=== PATIENT | female | born 1980 | race American Indian/Alaskan Native ===

== ENCOUNTER 2016-12-07 12:39 | Emergency (ER) | payer MEDICAID ==
--- NOTE | 2016-12-07 12:56 | EDM.PDOC ---
ED HPI ENT - General Chief Complaint: ENT Problem Stated Complaint: TOOTH PAIN Time Seen by Provider: 12/07/16 12:45 Source of Information: Reports: Patient History Limitations: Reports: No limitations - History of Present Illness INITIAL COMMENTS - FREE TEXT/NARRATIVE: This 36 yo female patient reports to the ED with right upper posterior dental pain. The patient has been seen for similar symptoms numerous times in the past. The patient has not followed up with a dentist and did not fill her prescription for antibiotics that was given to her during her last visit. The patient reports she has not been taking her regular medications for the past 2 months, because she reports it is difficult for her to get a ride to the pharmacy. 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 hip Endocrine/Metabolic History: Reports: Diabetes, type II - Past Surgical History Female Surgical History: Reports: Tubal ligation Social & Family History - Family History Family Medical History: Noncontributory - Tobacco Use Smoking Status *Q: Current Every Day Smoker Years of Tobacco use: 29 Packs/Tins Daily: 0.4 Second Hand Smoke Exposure: Yes - Alcohol Use Days Per Week of Alcohol Use: 0 - Recreational Drug Use Recreational Drug Use: No ED ROS ENT - Review of Systems Review Of Systems: ROS reveals no pertinent complaints other than HPI. ED EXAM, ENT - Physical Exam Exam: See Below Exam Limited By: No limitations General Appearance: alert, WD/WN, mild distress Eye Exam: bilateral eye: EOMI, normal inspection, PERRL Ears: normal external exam, normal canal, hearing grossly normal, normal TMs Nose: normal inspection, normal mucousa, no blood Mouth/Throat: Dental abcess (right upper posterior), Dental pain, Dental tenderness, Gum swelling Head: atraumatic, normocephalic Neck: normal inspection, supple, non-tender, full range of motion Respiratory/Chest: no respiratory distress, lungs clear, normal breath sounds, no accessory muscle use, chest non-tender Cardiovascular: normal peripheral pulses, regular rate, rhythm, no edema, no gallop, no JVD, no murmur, no rub GI/Abdominal: normal bowel sounds, soft, non tender, no organomegaly, no distention, no abnormal bruit, no mass (Female) Exam: Deferred Rectal (Female) Exam: Deferred Back: normal inspection, full range of motion Extremities: normal inspection, normal range of motion, non-tender, no pedal edema, normal capillary refill Neurological: alert, oriented, CN II-XII intact, normal cognition, normal gait, normal reflexes, no motor/sensory deficits Psychiatric: normal affect, normal mood Skin: Warm, Dry, Intact, Normal color, No rash Lymphatic: no adenopathy Course - Vital Signs Last Recorded V/S: Last Vital Signs Temp 36.4 C 12/07/16 12:49 Pulse 106 H 12/07/16 12:49 Resp 18 12/07/16 12:49 BP 154/68 H 12/07/16 12:49 Pulse Ox 98 12/07/16 12:49 Departure - Departure Time of Disposition: 12:53 Disposition: Home, Self-Care 01 Condition: fair Clinical Impression: Dental caries, Dental abscess Instructions: Dental Caries, [id number], Dental Abscess Forms: ED Department Discharge Care Plan Goals: The patient was advised of the examination results during the visit. The patient was given a script for Clindamycin (300 mg) #30 to take 1 by mouth 3 times per day for 10 days. The patient was advised to establish an appointment with a dentist. The patient was also advised that she needs to follow-up with her primary care facility for continued treatment of her other medical conditions. If the patient has any additional symptoms or further concerns, the patient should either visit her primary care facility or return to the emergency department.
== END 2016-12-07 13:07 | disposition home or self-care (01) ==
LOC: DL.ED 12:39
CPT/HCPCS: 99282

== ENCOUNTER 2017-06-06 19:05 | Emergency (ER) | payer MEDICAID, SELFPAY ==
[2017-06-06 19:13] VITALS: BP 124/88
[2017-06-06] MEDS ORDERED: Ondansetron 4 MG/2 ML SDV IV ONE (19:55)
[2017-06-06] MEDS ORDERED: HYDROmorphone 1 MG/ML Syringe IVPUSH ONE (19:55)
[2017-06-06] MEDS ORDERED: Sodium Chloride 0.9% 1,000 ML IV SCH (20:00)
--- NOTE | 2017-06-06 20:08 | EDM.PDOC ---
ED HPI GENERAL MEDICAL PROBLEM - General Chief Complaint: Abdominal Pain Stated Complaint: HEAVY BLEEDING Time Seen by Provider: 06/06/17 19:10 Source of Information: Reports: Patient, Other (clinic recor) History Limitations: Reports: No Limitations - History of Present Illness INITIAL COMMENTS - FREE TEXT/NARRATIVE: c/o right lower and mid abdominal pain starting 5 days ago. Recently seen in clinic today and reported to have torsed right ovarian cyst with retropertonial bleeding as well as vaginal bleeding. Dr. Garcia was reported to have spoken with Dr. Cowan at [facility] and patient was accepted for further evaluation and managment. Patient sent to ER as no immediate available ambulance for transfer, and clinic closing for the day. Patient rates RLQ pain at 8/10, describes as more pressure than previous after examination at clinic. hx. Denies drug or alcohol use. Last ate at 2pm today. Last took insulin approximately 2 weeks ago because "she ran out". Duration: Day(s): Location: Reports: Abdomen Worsens with: Reports: Movement Right Lower Abdomen Pain Score (Numeric/FACES): 7 - Related Data Allergies Allergy/AdvReac Type Severity Reaction Status Date / Time aspirin Allergy Rash Verified 12/07/16 12:49 Home Meds: Home Meds . 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 hip Endocrine/Metabolic History: Reports: Diabetes, Type II - Past Surgical History Female Surgical History: Reports: Tubal Ligation Social & Family History - Family History Family Medical History: Noncontributory - Tobacco Use Smoking Status *Q: Current Some Day Smoker Years of Tobacco use: 30 Packs/Tins Daily: 0.1 Second Hand Smoke Exposure: Yes - Alcohol Use Days Per Week of Alcohol Use: 0 - Recreational Drug Use Recreational Drug Use: No ED ROS GENERAL - Review of Systems Review Of Systems: ROS reveals no pertinent complaints other than HPI. ED EXAM, GI/ABD - Physical Exam Exam: See Below Exam Limited By: No Limitations General Appearance: Alert, Mild Distress, Thin Eyes: Bilateral: EOMI, Pale Conjunctiva Ears: Normal External Exam, Normal TMs Nose: Normal Inspection Throat/Mouth: Normal Inspection, Normal Lips Head: Atraumatic, Normocephalic Neck: Normal Inspection Respiratory/Chest: No Respiratory Distress, Lungs Clear, Normal Breath Sounds Cardiovascular: Normal Peripheral Pulses, Regular Rate, Rhythm, No Edema GI/Abdominal Exam: Soft, Guarding (RLQ), Tender (RLQ and suprapubic), Abnormal Bowel Sounds (hypoactive). No: Distended (Female) Exam: Deferred Extremities: Normal Inspection Neurological: Alert, Oriented Psychiatric: Normal Affect Skin Exam: Warm, Dry, Intact Course - Vital Signs Last Recorded V/S: Last Vital Signs Temp 97 F 06/06/17 19:08 Pulse 108 H 06/06/17 19:08 Resp 18 06/06/17 19:08 BP 124/88 06/06/17 19:08 Pulse Ox 100 06/06/17 19:08 - Orders/Labs/Meds Orders: Active Orders 24 hr Category Date Time Status Glucose [Blood Glucose Check, Bedside] [RC] ONETIME Care 06/06/17 20:01 Active Labs: Laboratory Tests 06/06/17 Range/Units 20:09 POC Glucose 275 H (70-105) mg/dl Meds: Medications Discontinued Medications Generic Name Dose Route Start Last Admin Trade Name Freq PRN Reason Stop Dose Admin Hydromorphone HCl 1 mg 06/06/17 19:55 06/06/17 20:04 Dilaudid IVPUSH 06/06/17 19:56 1 mg ONETIME ONE Administration Sodium Chloride 1,000 mls @ 125 mls/hr 06/06/17 20:00 06/06/17 20:04 Normal Saline IV 125 mls/hr ASDIRECTED JOHN Administration Ondansetron HCl 4 mg 06/06/17 19:55 06/06/17 20:02 Zofran IV 06/06/17 19:56 4 mg ONETIME ONE Administration - Re-Assessments/Exams Free Text/Narrative Re-Assessment/Exam: Tx via [facility] in stable condition to [facility] to care of Dr. Cowan for further eval and management. Contact with Dr. Cowan done by Clinic provider Dr. Garcia. Departure - Departure Time of Disposition: 20:40 Disposition: DC/Tfer to Acute Hospital 02 Condition: Undetermined Clinical Impression: Ovarian torsion, IDDM (insulin dependent diabetes mellitus), Noncompliance with medication regimen - Discharge Information Referrals: PCP,Unobtain [Primary Care Provider] - Forms: ED Department Discharge - My Orders Last 24 Hours: My Active Orders 06/06/17 20:01 Glucose [Blood Glucose Check, Bedside] [] ONETIME - Assessment/Plan Last 24 Hours: My Active Orders 06/06/17 20:01 Glucose [Blood Glucose Check, Bedside] [RC] ONETIME
== END 2017-06-06 20:43 ==
LOC: DL.ED 19:05
DX: N83.511 Torsion of right ovary and ovarian pedicle (principal); E11.9 Type 2 diabetes mellitus without complications; Z91.14 Patient's other noncompliance with medication regimen; M19.90 Unspecified osteoarthritis, unspecified site; F17.210 Nicotine dependence, cigarettes, uncomplicated; Z98.51 Tubal ligation status; Z88.6 Allergy status to analgesic agent
CPT/HCPCS: 82962; 96361; 96374; 96375; 99284; J1170; J2405; J7030

== ENCOUNTER 2017-10-04 20:26 | Inpatient (IN) | payer MEDICAID ==
[2017-10-04] MEDS ORDERED: Sodium Chloride 0.9% 1,000 ML IV ONE (20:51)
--- NOTE | 2017-10-04 20:57 | EDM.PDOC ---
ED HPI GENERAL MEDICAL PROBLEM - General Chief Complaint: General Stated Complaint: FLU SYMPTOMS, [id number] Time Seen by Provider: 10/04/17 20:53 Source of Information: Reports: Patient History Limitations: Reports: No Limitations - History of Present Illness INITIAL COMMENTS - FREE TEXT/NARRATIVE: c/o few days h/o F/C cough back ache shivering. 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 hip Endocrine/Metabolic History: Reports: Diabetes, Type II - Past Surgical History Female Surgical History: Reports: Tubal Ligation Social & Family History - Family History Family Medical History: Noncontributory - Tobacco Use Smoking Status *Q: Current Every Day Smoker Years of Tobacco use: 30 Packs/Tins Daily: 0.2 Second Hand Smoke Exposure: Yes - Caffeine Use Caffeine Use: Reports: Soda - Alcohol Use Days Per Week of Alcohol Use: 0 - Recreational Drug Use Recreational Drug Use: No ED ROS GENERAL - Review of Systems Review Of Systems: ROS reveals no pertinent complaints other than HPI. ED EXAM, GENERAL - Physical Exam Exam: See Below Exam Limited By: No Limitations General Appearance: Alert, WD/WN, Mild Distress, Other (general discomfort) Ears: Hearing Grossly Normal Throat/Mouth: Normal Voice, No Airway Compromise Head: Atraumatic Neck: Non-Tender, Full Range of Motion Respiratory/Chest: No Respiratory Distress, No Accessory Muscle Use, Rhonchi, Wheezing Cardiovascular: Regular Rate, Rhythm GI/Abdominal: Soft, Non-Tender Neurological: Alert, Oriented, Normal Cognition, Normal Gait, No Motor/Sensory Deficits Psychiatric: Flat Affect Skin Exam: Warm, Dry, Normal Color Lymphatic: No Adenopathy Course - Vital Signs Last Recorded V/S: Last Vital Signs Temp 38.8 C H 10/04/17 21:35 Pulse 117 H 01/16/18 21:35 Resp 14 10/04/17 21:35 BP 122/60 10/04/17 21:35 Pulse Ox 98 10/04/17 21:35 - Orders/Labs/Meds Orders: Active Orders 24 hr Category Date Time Status CULTURE BLOOD [BC] Stat Lab 10/04/17 20:50 Ordered Sodium Chloride 0.9% [Normal Saline] 1,000 ml Med 10/04/17 20:51 Ordered IV .BOLUS Medication Orders Sodium Chloride (Normal Saline) 1,000 mls @ 999 mls/hr IV .BOLUS ONE Stop: 10/04/17 21:51 Last Admin: 10/04/17 20:59 Dose: 999 mls/hr Labs: Laboratory Tests 10/04/17 10/04/17 10/04/17 Range/Units 20:49 20:49 20:58 WBC 8.0 (5.0-10.0) 10^3/uL RBC 4.94 (4.2-5.4) 10^6/uL Hgb 10.6 L (12.0-16.0) g/dL Hct 33.2 L (37.0-47.0) % MCV 67.2 L (80-100) fL MCH 21.5 L (27.0-34.0) pg MCHC 31.9 L (33.0-35.0) g/dL Plt Count 265 (150-450) 10^3/uL Neut % (Auto) 74.3 (42.2-75.2) % Lymph % (Auto) 15.2 L (20.5-50.1) % [place] % (Auto) 9.7 H (2-8) % Eos % (Auto) 0.6 L (1.0-3.0) % Baso % (Auto) 0.2 (0.0-1.0) % Sodium (135-145) mmol/L Potassium (3.6-5.0) mmol/L Chloride (101-111) mmol/L Carbon Dioxide (21.0-31.0) mmol/L Anion Gap BUN (7-18) mg/dL Creatinine (0.6-1.3) mg/dL Est Cr Clr Drug Dosing mL/min Estimated GFR (MDRD) BUN/Creatinine Ratio Glucose (74-105) mg/dL Lactic Acid (0.5-2.2) mmol/L Calcium (8.4-10.2) mg/dl Total Bilirubin (0.2-1.0) mg/dL AST (10-42) IU/L ALT (10-60) IU/L Alkaline Phosphatase (42-121) IU/L Total Protein (6.7-8.2) g/dl Albumin (3.2-5.5) g/dl Globulin Albumin/Globulin Ratio Urine Color Light yellow (YELLOW) Urine Appearance Cloudy (CLEAR) Urine pH 7.0 (5.0-9.0) Ur Specific [place] 1.010 (1.005-1.030) Urine Protein 30 H (NEGATIVE) Urine Glucose (UA) >=1000 H (NEGATIVE) Urine Ketones Negative (NEGATIVE) Urine Occult Blood Moderate H (NEGATIVE) Urine Nitrite Negative (NEGATIVE) Urine Bilirubin Negative (NEGATIVE) Urine Urobilinogen 0.2 (0.2-1.0) mg/dL Ur Leukocyte Esterase Trace H (NEGATIVE) Urine RBC 40-50 H /HPF Urine WBC Semi-packed H (0-5/HPF) /HPF Ur Epithelial Cells Few /HPF Amorphous Sediment Rare (0/HPF) /HPF Urine Bacteria Few (0-FEW/HPF) /HPF Urine Mucus Rare /LPF Urine Opiates Screen Negative (NEGATIVE) Ur Oxycodone Screen Negative (NEGATIVE) Urine Methadone Screen Negative (NEGATIVE) Ur Barbiturates Screen Negative (NEGATIVE) U Tricyclic Antidepress Negative (NEGATIVE) Ur Phencyclidine Scrn Negative (NEGATIVE) Ur Amphetamine Screen Negative (NEGATIVE) U Methamphetamines Scrn Negative (NEGATIVE) Urine MDMA Screen Negative (NEGATIVE) U Benzodiazepines Scrn Negative (NEGATIVE) Urine Cocaine Screen Negative (NEGATIVE) U Marijuana (THC) Screen Positive H (NEGATIVE) 10/04/17 10/04/17 Range/Units 20:58 20:58 WBC (5.0-10.0) 10^3/uL RBC (4.2-5.4) 10^6/uL Hgb (12.0-16.0) g/dL Hct (37.0-47.0) % MCV (80-100) fL MCH (27.0-34.0) pg MCHC (33.0-35.0) g/dL Plt Count (150-450) 10^3/uL Neut % (Auto) (42.2-75.2) % Lymph % (Auto) (20.5-50.1) % [place] % (Auto) (2-8) % Eos % (Auto) (1.0-3.0) % Baso % (Auto) (0.0-1.0) % Sodium 129 L (135-145) mmol/L Potassium 2.9 L D (3.6-5.0) mmol/L Chloride 92 L (101-111) mmol/L Carbon Dioxide 26.0 (21.0-31.0) mmol/L Anion Gap 13.9 BUN 5 L (7-18) mg/dL Creatinine 0.6 (0.6-1.3) mg/dL Est Cr Clr Drug Dosing 92.21 mL/min Estimated GFR (MDRD) > 60 BUN/Creatinine Ratio 8.33 Glucose 338 H (74-105) mg/dL Lactic Acid 1.1 (0.5-2.2) mmol/L Calcium 9.2 (8.4-10.2) mg/dl Total Bilirubin 0.2 (0.2-1.0) mg/dL AST 17 (10-42) IU/L ALT 13 (10-60) IU/L Alkaline Phosphatase 132 H (42-121) IU/L Total Protein 7.7 (6.7-8.2) g/dl Albumin 3.4 (3.2-5.5) g/dl Globulin 4.3 Albumin/Globulin Ratio 0.79 Urine Color (YELLOW) Urine Appearance (CLEAR) Urine pH (5.0-9.0) Ur Specific [place] (1.005-1.030) Urine Protein (NEGATIVE) Urine Glucose (UA) (NEGATIVE) Urine Ketones (NEGATIVE) Urine Occult Blood (NEGATIVE) Urine Nitrite (NEGATIVE) Urine Bilirubin (NEGATIVE) Urine Urobilinogen (0.2-1.0) mg/dL Ur Leukocyte Esterase (NEGATIVE) Urine RBC /HPF Urine WBC (0-5/HPF) /HPF Ur Epithelial Cells /HPF Amorphous Sediment (0/HPF) /HPF Urine Bacteria (0-FEW/HPF) /HPF Urine Mucus /LPF Urine Opiates Screen (NEGATIVE) Ur Oxycodone Screen (NEGATIVE) Urine Methadone Screen (NEGATIVE) Ur Barbiturates Screen (NEGATIVE) U Tricyclic Antidepress (NEGATIVE) Ur Phencyclidine Scrn (NEGATIVE) Ur Amphetamine Screen (NEGATIVE) U Methamphetamines Scrn (NEGATIVE) Urine MDMA Screen (NEGATIVE) U Benzodiazepines Scrn (NEGATIVE) Urine Cocaine Screen (NEGATIVE) U Marijuana (THC) Screen (NEGATIVE) Meds: Medications Generic Name Dose Route Start Last Admin Trade Name Linoq PRN Reason Stop Dose Admin Sodium Chloride 1,000 mls @ 999 mls/hr 10/04/17 20:51 10/04/17 20:59 Normal Saline IV 10/04/17 21:51 999 mls/hr .BOLUS ONE Administration Discontinued Medications Generic Name Dose Route Start Last Admin Trade Name Freq PRN Reason Stop Dose Admin Acetaminophen 325 mg 10/04/17 21:32 10/04/17 21:39 Tylenol PO 10/04/17 21:33 325 mg NOW ONE Administration - Re-Assessments/Exams Free Text/Narrative Re-Assessment/Exam: 10/04/17 21:[address] Groves who kindly admitted pt. Departure - Departure Time of Disposition: 21:40 Disposition: Admitted As Inpatient 66 Condition: Good Clinical Impression: Influenza A, UTI, Urinary tract infectious disease, Hyponatremia syndrome, Hypokalemia - Discharge Information Forms: ED Department Discharge - My Orders Last 24 Hours: My Active Orders 10/04/17 20:50 CULTURE BLOOD [BC] Stat 10/04/17 20:51 Sodium Chloride 0.9% [Normal Saline] 1,000 ml IV .BOLUS - Assessment/Plan Last 24 Hours: My Active Orders 10/04/17 20:50 CULTURE BLOOD [BC] Stat 10/04/17 20:51 Sodium Chloride 0.9% [Normal Saline] 1,000 ml IV .BOLUS
[2017-10-04 21:25] LABS: CHLORIDE,CL 92 mmol/L (101-111); SODIUM,NA 129 mmol/L (135-145)
[2017-10-04] MEDS ORDERED: Acetaminophen 325 MG Tab PO ONE (21:32)
[2017-10-04] MEDS ORDERED: Ondansetron 4 MG/2 ML SDV IVPUSH PRN (22:23)
[2017-10-04] MEDS ORDERED: Sodium Chloride 0.9% 10 ML Syringe FLUSH PRN (22:23)
--- NOTE | 2017-10-04 22:32 | PCM.HP ---
H&P History of Present Illness - General Date of Service: 10/04/17 Admit Problem/Dx: Admission Diagnosis/Problem Admission Diagnosis/Problem Hypokalemia Source of Information: Patient - History of Present Illness Initial Comments - Free Text/Narative: Presented with about 4 days history of fever, chills associated. Nonproductive cough. No similar sick contact. No appetite, low oral intake. She has diabetes. Not checking blood sugars at home. Had headaches. No abdominal pain. Has nausea and vomiting today. No diarrhea. 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 hip Endocrine/Metabolic History: Reports: Diabetes, Type I - Past Surgical History Female Surgical History: Reports: Tubal Ligation Social & Family History - Family History Family Medical History: Noncontributory - Tobacco Use Smoking Status *Q: Current Every Day Smoker Years of Tobacco use: 30 Packs/Tins Daily: 0.2 Second Hand Smoke Exposure: Yes - Caffeine Use Caffeine Use: Reports: Soda - Alcohol Use Days Per Week of Alcohol Use: 0 - Recreational Drug Use Recreational Drug Use: No H&P Review of Systems - Review of Systems: Review Of Systems: See Below General: Reports: Fever, Chills HEENT: Reports: Headaches Pulmonary: Reports: Cough. Denies: Shortness of Breath, Sputum, Hemoptysis Cardiovascular: Denies: Chest Pain, Edema Gastrointestinal: Reports: Nausea. Denies: Abdominal Pain Genitourinary: Denies: Dysuria Exam - Exam Exam: See Below - Vital Signs Vital Signs: Last Vital Signs Temp 38.1 C 10/04/17 22:10 Pulse 121 H 10/04/17 22:10 Resp 16 10/04/17 22:10 BP 125/68 10/04/17 22:10 Pulse Ox 99 10/04/17 22:10 Weight: 53.099 kg - Exam General: Alert, Oriented Neck: Supple, Trachea Midline Lungs: Clear to Auscultation, Normal Respiratory Effort. No: Wheezing Cardiovascular: Regular Rate, Regular Rhythm GI/Abdominal Exam: Normal Bowel Sounds, Soft, Non-Tender Extremities: No Pedal Edema Neuro Extensive - Mental Status: Alert, Oriented x3 - Patient Data Result Diagrams: 10/04/17 20:58 10/04/17 20:58 *Q Meaningful Use (ADM) - VTE *Q VTE Criteria *Q: - Stroke *Q Stroke Criteria *Q: - AMI *Q AMI Criteria *Q: - Problem List (1) Hypokalemia SNOMED Code(s): 02357836 ICD Code: E87.6 - HYPOKALEMIA Status: Acute Current Visit: Yes (2) UTI, Urinary tract infectious disease SNOMED Code(s): 91541476 ICD Code: N39.0 - URINARY TRACT INFECTION, SITE NOT SPECIFIED Status: Acute Current Visit: Yes (3) IDDM (insulin dependent diabetes mellitus) SNOMED Code(s): 63081097 ICD Code: E11.9 - TYPE 2 DIABETES MELLITUS WITHOUT COMPLICATIONS; Z79.4 - MCFP (CURRENT) USE OF INSULIN Status: Acute Current Visit: No Problem List Initiated/Reviewed/Updated: Yes Orders Last 24hrs: Active Orders 24 hr Category Date Time Status Patient Status [ADT] Routine ADT 10/04/17 22:23 Ordered Glucose [Blood Glucose Check, Bedside] [RC] QIDACANDBED Care 10/04/17 22:17 Ordered Oxygen Therapy [RC] PRN Care 10/04/17 22:23 Ordered Peripheral IV Care [RC] . DIRECTED Care 10/04/17 22:26 Ordered Up With Assistance [RC] ASDIRECTED Care 10/04/17 22:23 Ordered VTE/DVT Education [RC] PER UNIT ROUTINE Care 10/04/17 22:23 Ordered Vital Signs [RC] Q4H Care 10/04/17 22:23 Ordered Consistent Carbohydrate Diet [DIET] Diet 10/04/17 Breakfast Ordered BASIC METABOLIC PANEL,BMP [CHEM] AM Lab 10/05/17 05:15 Ordered CBC WITH AUTO DIFF [HEME] AM Lab 10/05/17 05:15 Ordered CULTURE URINE [RM] Routine Lab 10/04/17 22:20 Uncollected MAGNESIUM [CHEM] AM Lab 10/05/17 05:11 Ordered PHOSPHORUS [CHEM] AM Lab 10/05/17 05:11 Ordered Acetaminophen [Tylenol] Med 10/04/17 22:23 Ordered 650 mg PO Q4H PRN Heparin Sodium Med 10/05/17 06:00 Ordered 5,000 units SUBCUT Q8HR Insulin Aspart [NovoLOG] Med 10/05/17 08:00 Ordered See Protocol SUBCUT TIDAC Insulin Glarg,Human.Rec.Analog Med 10/05/17 21:00 Ordered 26 units SUBCUT BEDTIME Ondansetron [Zofran] Med 10/04/17 22:23 Ordered 4 mg IVPUSH Q6H PRN Oseltamivir [Tamiflu] Med 10/04/17 22:30 Ordered 75 mg PO DAILY Potassium Chloride [KCl 10 MEQ in Water 100 ML] 10 meq Med 10/04/17 22:30 Ordered Premix Bag 1 bag IV .Q2H Sodium Chloride 0.9% [Saline Flush] Med 10/04/17 22:23 Ordered 10 ml FLUSH ASDIRECTED PRN Sodium Chloride 0.9% with KCl 20 mEq @ 100 mL/Hr (1000 Med 10/04/17 22:30 Ordered mL) NS + KCl 20mEq/L [Normal Saline with 20 mEq KCl] 1,000 ml IV ASDIRECTED Zolpidem [Ambien] Med 10/04/17 22:23 Ordered 5 mg PO BEDTIME PRN cefTRIAXone [Rocephin] Med 10/04/17 22:30 Ordered 1 gm IVPUSH Q24H Peripheral IV Insertion Adult [OM.PC] Routine Oth 10/04/17 22:23 Ordered Resuscitation Status Routine Resus Stat 10/04/17 22:23 Ordered Medication Orders Acetaminophen (Tylenol) 650 mg PO Q4H PRN PRN Reason: Pain (Mild 1-3)/fever Ceftriaxone Sodium (Rocephin) 1 gm IVPUSH Q24H JOHN Heparin Sodium (Porcine) (Heparin Sodium) 5,000 units SUBCUT Q8HR JOHN Potassium Chloride 10 meq/ (Premix) 100 mls @ 100 mls/hr IV .Q2H JOHN Potassium Chloride/Sodium Chloride (Normal Saline With 20 Meq Kcl) 1,000 mls @ 100 mls/hr IV ASDIRECTED JOHN Insulin Aspart (Novolog) 0 unit SUBCUT TIDAC JOHN PRN Reason: Protocol Non-Formulary Medication (Insulin Glarg,Human.Rec.Analog) 26 units SUBCUT BEDTIME JOHN Ondansetron HCl (Zofran) 4 mg IVPUSH Q6H PRN PRN Reason: Nausea/Vomiting Oseltamivir Phosphate (Tamiflu) 75 mg PO DAILY JOHN Sodium Chloride (Saline Flush) 10 ml FLUSH ASDIRECTED PRN PRN Reason: Keep Vein Open Zolpidem Tartrate (Ambien) 5 mg PO BEDTIME PRN PRN Reason: Sleep Assessment/Plan Comment:: 37-year-old lady with a history of diabetes presented with fever, cough, chills. #1 upper respiratory tract infection likely secondary to influenza Start the patient on Tamiflu Obtain sputum culture to evaluate for bacterial superinfection IV hydration, Tylenol and symptomatic management #2 urinary tract infection Obtain urine culture Start treatment empirically with ceftriaxone #3 Uncontrolled diabetes We'll continue Lantus at night Use supplemental insulin as needed Follow blood sugars before meals #4 pseudohyponatremia Secondary to elevated blood sugars Follow electrolytes during treatment of hyperglycemia #5 hypokalemia We'll give IV supplement Recheck magnesium phosphorous potassium and the morning #6 DVT prophylaxis with subcutaneous heparin
[2017-10-04] MEDS: cefTRIAXone 1 GM Vial IVPUSH SCH (22:44)
[2017-10-04] MEDS: Oseltamivir 75 MG Cap PO SCH (22:45)
[2017-10-04] MEDS: Insulin Detemir 100 Units/ML 3 ML Pen SUBCUT SCH (22:54)
[2017-10-04] MEDS: guaiFENesin 100 MG/5 ML Soln 5 ML UD Cup PO PRN (22:55)
[2017-10-04] MEDS: NS + KCl 20mEq/L 1,000 ML IV SCH (22:59)
[2017-10-04] MEDS: Potassium Chloride 10 MEQ in Premix Bag 1 BAG IV SCH (23:02)
[2017-10-04] MEDS: Zolpidem 5 MG Tab PO PRN (23:05)
[2017-10-05] MEDS: Potassium Chloride 10 MEQ in Premix Bag 1 BAG IV SCH ×6 (00:05→10:00)
[2017-10-05] MEDS: guaiFENesin 100 MG/5 ML Soln 5 ML UD Cup PO PRN ×3 (05:30→21:01)
[2017-10-05] MEDS: Heparin Sodium 5,000 Units/ML Vial SUBCUT SCH ×3 (05:37→22:23)
[2017-10-05 07:07] LABS: CHLORIDE,CL 105 mmol/L (101-111); SODIUM,NA 135 mmol/L (135-145)
[2017-10-05] MEDS: Oseltamivir 75 MG Cap PO SCH (08:10)
[2017-10-05] MEDS: Acetaminophen 325 MG Tab PO PRN ×2 (08:10→19:52)
[2017-10-05] MEDS: Insulin Aspart 100 Units/ML 3 ML Pen SUBCUT SCH ×3 (08:11→17:36)
[2017-10-05] MEDS: NS + KCl 20mEq/L 1,000 ML IV SCH ×2 (10:59→21:00)
[2017-10-05] MEDS ORDERED: Potassium Chloride 10 MEQ Tab.ER PO ONE (11:24)
--- NOTE | 2017-10-05 11:30 | PCM.PN ---
- General Info Date of Service: 10/05/17 Admission Dx/Problem (Free Text): Admission Diagnosis/Problem Admission Diagnosis/Problem Hypokalemia Subjective Update: Continues to have fever, nonproductive cough. No chest pain, no shortness of breath. Patient's significant other is also with similar symptoms. - Patient Data Vitals - Most Recent: Last Vital Signs Temp 36.2 C 10/05/17 11:00 Pulse 92 10/05/17 11:00 Resp 20 10/05/17 11:00 BP 103/61 10/05/17 11:00 Pulse Ox 99 10/05/17 11:00 Weight - Most Recent: 53.099 kg I&O - Last 24 Hours: Intake & Output 10/04/17 10/05/17 10/05/17 22:59 06:59 14:59 Intake Total 900 1077 Output Total 850 400 Balance 50 677 Lab Results Last 24 Hours: Laboratory Results - last 24 hr 10/04/17 10/05/17 10/05/17 Range/Units 23:35 06:30 06:30 WBC 5.6 (5.0-10.0) 10^3/uL RBC 4.39 (4.2-5.4) 10^6/uL Hgb 9.5 L (12.0-16.0) g/dL Hct 29.6 L (37.0-47.0) % MCV 67.4 L (80-100) fL MCH 21.6 L (27.0-34.0) pg MCHC 32.1 L (33.0-35.0) g/dL Plt Count 272 (150-450) 10^3/uL Neut % (Auto) 48.0 (42.2-75.2) % Lymph % (Auto) 35.8 (20.5-50.1) % [place] % (Auto) 15.1 H (2-8) % Eos % (Auto) 0.7 L (1.0-3.0) % Baso % (Auto) 0.4 (0.0-1.0) % Sodium 135 (135-145) mmol/L Potassium 3.4 L (3.6-5.0) mmol/L Chloride 105 D (101-111) mmol/L Carbon Dioxide 23.0 (21.0-31.0) mmol/L Anion Gap 10.4 BUN 5 L (7-18) mg/dL Creatinine 0.4 L (0.6-1.3) mg/dL Est Cr Clr Drug Dosing 138.32 mL/min Estimated GFR (MDRD) > 60 Glucose 136 H (74-105) mg/dL POC Glucose (70-105) mg/dl Calcium 8.0 L (8.4-10.2) mg/dl Phosphorus 2.5 (2.5-4.6) mg/dL Magnesium 1.5 L (1.8-2.5) mg/dL Urine HCG, Qual Negative 10/05/17 Range/Units 07:55 WBC (5.0-10.0) 10^3/uL RBC (4.2-5.4) 10^6/uL Hgb (12.0-16.0) g/dL Hct (37.0-47.0) % MCV (80-100) fL MCH (27.0-34.0) pg MCHC (33.0-35.0) g/dL Plt Count (150-450) 10^3/uL Neut % (Auto) (42.2-75.2) % Lymph % (Auto) (20.5-50.1) % [place] % (Auto) (2-8) % Eos % (Auto) (1.0-3.0) % Baso % (Auto) (0.0-1.0) % Sodium (135-145) mmol/L Potassium (3.6-5.0) mmol/L Chloride (101-111) mmol/L Carbon Dioxide (21.0-31.0) mmol/L Anion Gap BUN (7-18) mg/dL Creatinine (0.6-1.3) mg/dL Est Cr Clr Drug Dosing mL/min Estimated GFR (MDRD) Glucose (74-105) mg/dL POC Glucose 100 (70-105) mg/dl Calcium (8.4-10.2) mg/dl Phosphorus (2.5-4.6) mg/dL Magnesium (1.8-2.5) mg/dL Urine HCG, Qual Med Orders - Current: Current Medications Acetaminophen (Tylenol) 650 mg PO Q4H PRN PRN Reason: Pain (Mild 1-3)/fever Last Admin: 10/05/17 08:10 Dose: 650 mg Ceftriaxone Sodium (Rocephin) 1 gm IVPUSH Q24H [facility] Last Admin: 10/04/17 22:44 Dose: 1 gm Guaifenesin (Robitussin) 100 mg PO Q6H PRN PRN Reason: Cough Last Admin: 10/05/17 05:30 Dose: 100 mg Heparin Sodium (Porcine) (Heparin Sodium) 5,000 units SUBCUT Q8HR [facility] Last Admin: 10/05/17 05:37 Dose: 5,000 units Potassium Chloride/Sodium Chloride (Normal Saline With 20 Meq Kcl) 1,000 mls @ 100 mls/hr IV ASDIRECTED [facility] Last Admin: 10/05/17 10:59 Dose: 100 mls/hr Insulin Aspart (Novolog) 0 unit SUBCUT TIDAC [facility] PRN Reason: Protocol Last Admin: 10/05/17 08:11 Dose: Not Given Insulin Detemir (Levemir) 0 unit SUBCUT BEDTIME [facility] Last Admin: 10/04/17 22:54 Dose: 26 units Magnesium Oxide (Magnesium Oxide) 250 mg PO WITHBREAKFAST [facility] Ondansetron HCl (Zofran) 4 mg IVPUSH Q6H PRN PRN Reason: Nausea/Vomiting Oseltamivir Phosphate (Tamiflu) 75 mg PO DAILY [facility] Last Admin: 10/05/17 08:10 Dose: 75 mg Potassium Chloride (Klor-Con 10) 40 meq PO ONETIME ONE Stop: 10/05/17 11:25 Sodium Chloride (Saline Flush) 10 ml FLUSH ASDIRECTED PRN PRN Reason: Keep Vein Open Zolpidem Tartrate (Ambien) 5 mg PO BEDTIME PRN PRN Reason: Sleep Last Admin: 10/04/17 23:05 Dose: 5 mg Discontinued Medications Acetaminophen (Tylenol) 325 mg PO NOW ONE Stop: 10/04/17 21:33 Last Admin: 10/04/17 21:39 Dose: 325 mg Sodium Chloride (Normal Saline) 1,000 mls @ 999 mls/hr IV .BOLUS ONE Stop: 10/04/17 21:51 Last Admin: 10/04/17 20:59 Dose: 999 mls/hr Potassium Chloride 10 meq/ (Premix) 100 mls @ 100 mls/hr IV Q2H [facility] Stop: 10/05/17 09:29 Last Admin: 10/05/17 10:00 Dose: Not Given - Exam General: Alert, Oriented Neck: Supple Lungs: Clear to Auscultation, Normal Respiratory Effort Cardiovascular: Regular Rate, Regular Rhythm GI/Abdominal Exam: Normal Bowel Sounds, Soft, Non-Tender Extremities: No Pedal Edema - Problem List & Annotations (1) Hypokalemia SNOMED Code(s): 80666722 Code(s): E87.6 - HYPOKALEMIA Status: Acute Current Visit: Yes (2) UTI, Urinary tract infectious disease SNOMED Code(s): 06783266 Code(s): N39.0 - URINARY TRACT INFECTION, SITE NOT SPECIFIED Status: Acute Current Visit: Yes (3) IDDM (insulin dependent diabetes mellitus) SNOMED Code(s): 78315444 Code(s): E11.9 - TYPE 2 DIABETES MELLITUS WITHOUT COMPLICATIONS; Z79.4 - RETIREMENT (CURRENT) USE OF INSULIN Status: Acute Current Visit: No - Problem List Review Problem List Initiated/Reviewed/Updated: Yes - My Orders Last 24 Hours: My Active Orders 10/04/17 22:33 guaiFENesin [Robitussin] 100 mg PO Q6H PRN 10/05/17 11:24 Potassium Chloride [Klor-Con 10] 40 meq PO ONETIME ONE 10/05/17 11:30 Magnesium Oxide 250 mg PO WITHBREAKFAST - Plan Plan:: 37-year-old lady with a history of diabetes presented with fever, cough, chills. #1 upper respiratory tract infection likely secondary to influenza Started the patient on Tamiflu pending sputum culture to evaluate for bacterial superinfection Continue IV hydration, Tylenol and symptomatic management #2 urinary tract infection Pending urine culture Start treatment empirically with ceftriaxone #3 Uncontrolled diabetes We'll continue Lantus Use supplemental insulin as needed Follow blood sugars before meals #4 pseudohyponatremia Secondary to elevated blood sugars Resolved #5 hypokalemia We'll continue supplement replace magnesium recheck in the morning #6 DVT prophylaxis with subcutaneous heparin
[2017-10-05] MEDS: Insulin Detemir 100 Units/ML 3 ML Pen SUBCUT SCH (22:21)
[2017-10-05] MEDS: Zolpidem 5 MG Tab PO PRN (22:22)
[2017-10-05] MEDS: cefTRIAXone 1 GM Vial IVPUSH SCH (23:06)
[2017-10-06] MEDS: guaiFENesin 100 MG/5 ML Soln 5 ML UD Cup PO PRN ×2 (03:03→09:57)
[2017-10-06] MEDS: Acetaminophen 325 MG Tab PO PRN ×2 (03:03→09:57)
[2017-10-06] MEDS: NS + KCl 20mEq/L 1,000 ML IV SCH (06:45)
[2017-10-06] MEDS: Heparin Sodium 5,000 Units/ML Vial SUBCUT SCH ×2 (06:47→15:31)
[2017-10-06 06:58] LABS: CHLORIDE,CL 103 mmol/L (101-111); SODIUM,NA 135 mmol/L (135-145)
[2017-10-06] MEDS: Oseltamivir 75 MG Cap PO SCH (08:54)
[2017-10-06] MEDS: Insulin Aspart 100 Units/ML 3 ML Pen SUBCUT SCH ×2 (08:54→12:33)
[2017-10-06 11:08] VITALS: BP 109/75
--- NOTE | 2017-10-06 11:08 | PCM.DCSUM1 ---
Discharge Summary - Hospital Course Free Text/Narrative:: 37-year-old lady with a history of diabetes presented with fever, cough, chills. #1 upper respiratory tract infection likely secondary to influenza Started the patient on Tamiflu received IV hydration, Tylenol and symptomatic management #2 urinary tract infection Pending urine culture Start treatment empirically with ceftriaxone finish tx. with keflex #3 Uncontrolled diabetes We'll continue Lantus #4 pseudohyponatremia Secondary to elevated blood sugars Resolved #5 hypokalemia was replaced - Discharge Data Discharge Date: 10/06/17 Discharge Disposition: Home, Self-Care 01 Condition: Good - Discharge Diagnosis/Problem(s) (1) Hypokalemia SNOMED Code(s): 11658744 ICD Code: E87.6 - HYPOKALEMIA Status: Acute Current Visit: Yes (2) UTI, Urinary tract infectious disease SNOMED Code(s): 00513622 ICD Code: N39.0 - URINARY TRACT INFECTION, SITE NOT SPECIFIED Status: Acute Current Visit: Yes (3) IDDM (insulin dependent diabetes mellitus) SNOMED Code(s): 13497945 ICD Code: E11.9 - TYPE 2 DIABETES MELLITUS WITHOUT COMPLICATIONS; Z79.4 - PRISON (CURRENT) USE OF INSULIN Status: Acute Current Visit: No - Patient Instructions Diet: Usual Diet as Tolerated Activity: As Tolerated - Discharge Plan Prescriptions/Med Rec: Cephalexin [Keflex] 500 mg PO Q8H #9 cap Oseltamivir Phosphate [IJD: Tamiflu] 75 mg PO DAILY #3 capsule Home Medications: Home Meds Insulin Glarg,Human.Rec.Analog [Lantus] 26 units SUBCUT BEDTIME 10/04/17 [ History] Cephalexin [Keflex] 500 mg PO Q8H #9 cap 10/06/17 [Rx] Oseltamivir Phosphate [IJD: Tamiflu] 75 mg PO DAILY #3 capsule 10/06/17 [Rx] Referrals: Provider,Unknown [Ordering Only Provider] - (in 3-4 days) - Discharge Summary/Plan Comment DC Time >30 min.: No - General Info Date of Service: 10/06/17 - Review of Systems General: Denies: Fever, Weakness Pulmonary: Denies: Shortness of Breath Cardiovascular: Denies: Chest Pain Gastrointestinal: Denies: Abdominal Pain Genitourinary: Denies: Dysuria - Patient Data Vitals - Most Recent: Last Vital Signs Temp 37.0 C 10/06/17 07:10 Pulse 85 10/06/17 07:10 Resp 20 10/06/17 07:10 BP 115/68 10/06/17 07:10 Pulse Ox 96 10/06/17 07:10 Weight - Most Recent: 53.099 kg I&O - Last 24 hours: Intake & Output 10/05/17 10/06/17 10/06/17 22:59 06:59 14:59 Intake Total 1476 740 832 Output Total 700 1800 Balance 776 -1060 832 Lab Results - Last 24 hrs: Laboratory Results - last 24 hr 10/05/17 10/05/17 10/05/17 Range/Units 11:18 16:53 21:09 WBC (5.0-10.0) 10^3/uL RBC (4.2-5.4) 10^6/uL Hgb (12.0-16.0) g/dL Hct (37.0-47.0) % MCV (80-100) fL MCH (27.0-34.0) pg MCHC (33.0-35.0) g/dL Plt Count (150-450) 10^3/uL Neut % (Auto) (42.2-75.2) % Lymph % (Auto) (20.5-50.1) % [place] % (Auto) (2-8) % Eos % (Auto) (1.0-3.0) % Baso % (Auto) (0.0-1.0) % Sodium (135-145) mmol/L Potassium (3.6-5.0) mmol/L Chloride (101-111) mmol/L Carbon Dioxide (21.0-31.0) mmol/L Anion Gap BUN (7-18) mg/dL Creatinine (0.6-1.3) mg/dL Est Cr Clr Drug Dosing mL/min Estimated GFR (MDRD) Glucose (74-105) mg/dL POC Glucose 265 H 209 H 310 H (70-105) mg/dl Calcium (8.4-10.2) mg/dl 10/06/17 10/06/17 10/06/17 Range/Units 06:25 06:25 07:24 WBC 5.2 (5.0-10.0) 10^3/uL RBC 4.53 (4.2-5.4) 10^6/uL Hgb 9.7 L (12.0-16.0) g/dL Hct 31.2 L (37.0-47.0) % MCV 68.9 L (80-100) fL MCH 21.4 L (27.0-34.0) pg MCHC 31.1 L (33.0-35.0) g/dL Plt Count 286 (150-450) 10^3/uL Neut % (Auto) 32.6 L (42.2-75.2) % Lymph % (Auto) 53.4 H (20.5-50.1) % [place] % (Auto) 11.3 H (2-8) % Eos % (Auto) 2.3 (1.0-3.0) % Baso % (Auto) 0.4 (0.0-1.0) % Sodium 135 (135-145) mmol/L Potassium 4.1 (3.6-5.0) mmol/L Chloride 103 (101-111) mmol/L Carbon Dioxide 25.0 (21.0-31.0) mmol/L Anion Gap 11.1 BUN 8 (7-18) mg/dL Creatinine 0.4 L (0.6-1.3) mg/dL Est Cr Clr Drug Dosing 138.32 mL/min Estimated GFR (MDRD) > 60 Glucose 298 H (74-105) mg/dL POC Glucose 274 H (70-105) mg/dl Calcium 8.6 (8.4-10.2) mg/dl Med Orders - Current: Current Medications Acetaminophen (Tylenol) 650 mg PO Q4H PRN PRN Reason: Pain (Mild 1-3)/fever Last Admin: 10/06/17 09:57 Dose: 650 mg Ceftriaxone Sodium (Rocephin) 1 gm IVPUSH Q24H [facility] Last Admin: 10/05/17 23:06 Dose: 1 gm Guaifenesin (Robitussin) 100 mg PO Q6H PRN PRN Reason: Cough Last Admin: 10/06/17 09:57 Dose: 100 mg Heparin Sodium (Porcine) (Heparin Sodium) 5,000 units SUBCUT Q8HR [facility] Last Admin: 10/06/17 06:47 Dose: 5,000 units Potassium Chloride/Sodium Chloride (Normal Saline With 20 Meq Kcl) 1,000 mls @ 100 mls/hr IV ASDIRECTED [facility] Last Admin: 10/06/17 06:45 Dose: 100 mls/hr Insulin Aspart (Novolog) 0 unit SUBCUT TIDAC [facility] PRN Reason: Protocol Last Admin: 10/06/17 08:54 Dose: 6 units Insulin Detemir (Levemir) 0 unit SUBCUT BEDTIME [facility] Last Admin: 10/05/17 22:21 Dose: 26 units Magnesium Oxide (Magnesium Oxide) 250 mg PO WITHBREAKFAST [facility] Last Admin: 10/06/17 08:54 Dose: 250 mg Ondansetron HCl (Zofran) 4 mg IVPUSH Q6H PRN PRN Reason: Nausea/Vomiting Oseltamivir Phosphate (Tamiflu) 75 mg PO DAILY [facility] Last Admin: 10/06/17 08:54 Dose: 75 mg Sodium Chloride (Saline Flush) 10 ml FLUSH ASDIRECTED PRN PRN Reason: Keep Vein Open Zolpidem Tartrate (Ambien) 5 mg PO BEDTIME PRN PRN Reason: Sleep Last Admin: 10/05/17 22:22 Dose: 5 mg Discontinued Medications Acetaminophen (Tylenol) 325 mg PO NOW ONE Stop: 10/04/17 21:33 Last Admin: 10/04/17 21:39 Dose: 325 mg Sodium Chloride (Normal Saline) 1,000 mls @ 999 mls/hr IV .BOLUS ONE Stop: 10/04/17 21:51 Last Admin: 10/04/17 20:59 Dose: 999 mls/hr Potassium Chloride 10 meq/ (Premix) 100 mls @ 100 mls/hr IV Q2H [facility] Stop: 10/05/17 09:29 Last Admin: 10/05/17 10:00 Dose: Not Given Potassium Chloride (Klor-Con 10) 40 meq PO ONETIME ONE Stop: 10/05/17 11:25 Last Admin: 10/05/17 12:05 Dose: 40 meq - Exam Quality Assessment: Denies: Supplemental Oxygen General: Reports: Alert, Oriented Neck: Reports: Supple Lungs: Reports: Clear to Auscultation, Normal Respiratory Effort Cardiovascular: Reports: Regular Rate, Regular Rhythm GI/Abdominal Exam: Normal Bowel Sounds, Soft Extremities: No: Pedal Edema *Q Meaningful Use (DIS) - VTE *Q VTE Criteria *Q: - Stroke *Q Stroke Criteria *Q: - AMI *Q AMI Criteria *Q:
== END 2017-10-06 13:26 | disposition home or self-care (01) | DRG 690 ==
LOC: DL.ED 20:26 → UNDOADMIN 21:52 → DL.MS 21:52
PROVIDERS: ADMIT Internal Medicine; ATTEND Internal Medicine
DX: N39.0 Urinary tract infection, site not specified (principal); E87.1 Hypo-osmolality and hyponatremia; J11.1 Influenza due to unidentified influenza virus with other respiratory manifestations; E87.6 Hypokalemia; E11.65 Type 2 diabetes mellitus with hyperglycemia; E11.40 Type 2 diabetes mellitus with diabetic neuropathy, unspecified; Z79.4 Long term (current) use of insulin; Z88.8 Allergy status to other drugs, medicaments and biological substances; M19.90 Unspecified osteoarthritis, unspecified site; F17.210 Nicotine dependence, cigarettes, uncomplicated
CPT/HCPCS: 36415; 71046; 80053; 80305; 81001; 83605; 85025; 87040; 87804 ×2; 96360; 99284; A9270; J7030; 80048; 81025; 82962; 83735; 84100; 87086; 87088; 87186; J0696; J1644; J1815-GY; J3480

== ENCOUNTER 2020-02-14 22:58 | Emergency (ER) | payer SELFPAY ==
[2020-02-14 23:05] VITALS: BP 119/83; PULSE 89
[2020-02-14] MEDS ORDERED: Acetaminophen/HYDROcodone 325-10 MG Tab PO ONE (23:11)
[2020-02-14] MEDS ORDERED: Clindamycin HCl 150 MG Cap PO ONE (23:11)
[2020-02-14] MEDS ORDERED: Lidocaine 2% Viscous Solution 15 ML Cup PO ONE (23:11)
--- NOTE | 2020-02-14 23:17 | EDM.PDOC ---
ED HPI GENERAL MEDICAL PROBLEM - General Chief Complaint: ENT Problem Stated Complaint: LEFT SIDE TOP AND BOTTOM TEETH. Time Seen by Provider: 02/14/20 23:13 Source of Information: Reports: Patient History Limitations: Reports: No Limitations - History of Present Illness INITIAL COMMENTS - FREE TEXT/NARRATIVE: tooth pain few days worse tonight, had DDS in morning. Left Oral/Mouth Pain Score (Numeric/FACES): 8 - Related Data Allergies Allergy/AdvReac Type Severity Reaction Status Date / Time aspirin Allergy Rash Verified 02/14/20 23:01 ibuprofen [From Motrin] Allergy Swelling Verified 02/14/20 23:01 Past Medical History Other HEENT History: dental removal of abcessed teeth Gastrointestinal History: Reports: None Genitourinary History: Reports: Diabetic Nephropathy LUMBER ESTIMATOR History: Reports: Other (See Below) Other LUMBER ESTIMATOR History: cysts in uterus, ovarian torsion Musculoskeletal History: Reports: Arthritis Other Musculoskeletal History: Rt. hip Endocrine/Metabolic History: Reports: Diabetes, Type I - Past Surgical History Female Surgical History: Reports: Tubal Ligation Social & Family History - Family History Family Medical History: Noncontributory - Tobacco Use Smoking Status *Q: Current Every Day Smoker Years of Tobacco use: 33 Packs/Tins Daily: 0.1 - Caffeine Use Caffeine Use: Reports: Soda Other Caffeine Use: 2 liter - Recreational Drug Use Recreational Drug Use: No ED ROS ENT - Review of Systems Review Of Systems: Comprehensive ROS is negative, except as noted in HPI. ED EXAM, ENT - Physical Exam Exam: See Below Exam Limited By: No Limitations General Appearance: Alert, WD/WN, Mild Distress, Other (tearful) Ears: Hearing Grossly Normal Mouth/Throat: Dental Abcess, Dental Pain, Dental Tenderness, Other (extensive decay) Head: Atraumatic Neck: Non-Tender, Full Range of Motion Respiratory/Chest: No Respiratory Distress Cardiovascular: Regular Rate, Rhythm GI/Abdominal: Soft, Non-Tender Neurological: Alert, Oriented, Normal Cognition, Normal Gait, No Motor/Sensory Deficits Psychiatric: Tearful Skin: Warm, Dry, Normal Color Lymphatic: No Adenopathy Course - Vital Signs Last Recorded V/S: Last Vital Signs Temp 36.6 C 02/14/20 23:04 Pulse 89 02/14/20 23:04 Resp 18 02/14/20 23:04 BP 119/83 02/14/20 23:04 Pulse Ox 100 02/14/20 23:04 - Orders/Labs/Meds Orders: Active Orders 24 hr Category Date Time Status Lidocaine 2% [Xylocaine 2% Viscous] Med 02/14/20 23:11 Once 15 ml PO ONETIME ONE clindamycin HCL [Cleocin] Med 02/14/20 23:11 Once 300 mg PO ONETIME ONE Meds: Medications Discontinued Medications Generic Name Dose Route Start Last Admin Trade Name Afsaneh PRN Reason Stop Dose Admin Hydrocodone Bitart/Acetaminophen 1 tab 02/14/20 23:11 [place] 325-10 Mg PO 02/14/20 23:12 ONETIME ONE Clindamycin HCl 300 mg 02/14/20 23:11 Cleocin PO 02/14/20 23:12 ONETIME ONE Lidocaine HCl 15 ml 02/14/20 23:11 Xylocaine 2% Viscous PO 02/14/20 23:12 ONETIME ONE Departure - Departure Time of Disposition: 23:15 Disposition: Home, Self-Care 01 Condition: Good Clinical Impression: Dental caries, Dental caries extending into dentin, Abscessed tooth, Dental abscess - Discharge Information Instructions: Dental Abscess, [id number] Additional Instructions: 1) dab viscous lidocaine onto sore tooth with Q-tip as needed for pain 2) see dentist in morning rx given; clindamycin 300mg qid x 40 Sepsis Event Note - Evaluation Sepsis Screening Result: No Definite Risk - Focused Exam Vital Signs: Vital Signs Temp Pulse Resp BP Pulse Ox 02/14/20 23:04 36.6 C 89 18 119/83 100 Date Exam was Performed: 02/14/20 Time Exam was Performed: 23:13 - My Orders Last 24 Hours: My Active Orders 02/14/20 23:11 Lidocaine 2% [Xylocaine 2% Viscous] 15 ml PO ONETIME ONE clindamycin HCL [Cleocin] 300 mg PO ONETIME ONE - Assessment/Plan Last 24 Hours: My Active Orders 02/14/20 23:11 Lidocaine 2% [Xylocaine 2% Viscous] 15 ml PO ONETIME ONE clindamycin HCL [Cleocin] 300 mg PO ONETIME ONE
== END 2020-02-14 23:20 | disposition home or self-care (01) ==
LOC: DL.ED 22:58
DX: K04.7 Periapical abscess without sinus (principal); K02.9 Dental caries, unspecified; F17.210 Nicotine dependence, cigarettes, uncomplicated; Z88.6 Allergy status to analgesic agent; E10.21 Type 1 diabetes mellitus with diabetic nephropathy
CPT/HCPCS: 99282; A9270; 99283

== ENCOUNTER 2020-07-30 18:39 | Inpatient (IN) | payer MEDICAID ==
--- NOTE | 2020-07-30 18:33 | EDM.PDOC ---
ED HPI GENERAL MEDICAL PROBLEM - General Stated Complaint: AMBULANCE Time Seen by Provider: 07/30/20 18:20 Source of Information: Reports: Patient, EMS, EMS Notes Reviewed, RN, RN Notes Reviewed History Limitations: Reports: No Limitations - History of Present Illness INITIAL COMMENTS - FREE TEXT/NARRATIVE: Patient presents to the ED via EMS for complaints of abscess to right frontal scalp. The patient states the wound first appeared two weeks ago and has progressively worsened over that time. She states an increase in edema, redness, warmth, and pain to the area; she notes a purulent drainage that occasionally "...runs down my face." The patient states she has a history of DM II which she does not treat. She denies following with a primary care provider or having any prescriptions for antidiabetic agents/insulin. She denies fever, shaking chills, recent illness, polydipsia, polyuria, or polyphagia. She does attest to a headache associated with the wound. She states she has tried to " pop" it, but it keeps coming back. She denies tobacco, alcohol, or recreational drug use. Right Head Pain Score (Numeric/FACES): 9 - Related Data Allergies Allergy/AdvReac Type Severity Reaction Status Date / Time aspirin Allergy Rash Verified 02/14/20 23:01 ibuprofen [From Motrin] Allergy Swelling Verified 02/14/20 23:01 Past Medical History Other HEENT History: dental removal of abcessed teeth Gastrointestinal History: Reports: None Genitourinary History: Reports: Diabetic Nephropathy INSPECTOR TUBES History: Reports: Other (See Below) Other INSPECTOR TUBES History: cysts in uterus, ovarian torsion Musculoskeletal History: Reports: Arthritis Other Musculoskeletal History: Rt. hip Endocrine/Metabolic History: Reports: Diabetes, Type I - Past Surgical History Female Surgical History: Reports: Tubal Ligation Social & Family History - Family History Family Medical History: No Pertinent Family History - Caffeine Use Caffeine Use: Reports: Soda Other Caffeine Use: 2 liter ED ROS GENERAL - Review of Systems Review Of Systems: Comprehensive ROS is negative, except as noted in HPI. ED EXAM, SKIN/RASH Exam: See Below Exam Limited By: No Limitations General Appearance: Alert, Mild Distress Eye Exam: Bilateral Eye: EOMI, Periorbital Changes (Swelling), PERRL, Vision Changes Head: Normocephalic, Facial Swelling (Periorbital swelling), Other (Wound to right, frontal scalp) Neck: Normal Inspection, Supple, Non-Tender, Full Range of Motion Respiratory/Chest: No Respiratory Distress, Lungs Clear, Chest Non-Tender Cardiovascular: Normal Peripheral Pulses, Regular Rate, Rhythm, No Edema, No Gallop, No JVD, No Murmur, No Rub GI/Abdominal: Normal Bowel Sounds, Soft, Non-Tender, No Distention, No Mass, Pelvis Stable Back Exam: Normal Inspection, Full Range of Motion. No: CVA Tenderness (L), CVA Tenderness (R) Extremities: Normal Inspection, Normal Range of Motion, Non-Tender, No Pedal Edema, Normal Capillary Refill Neurological: Alert, Oriented, CN II-XII Intact, Normal Cognition, Normal Gait, No Motor/Sensory Deficits Psychiatric: Anxious, Tearful Skin: Wound/Incision (Abscess to right frontal scalp) Location, Skin: Head Characteristics: Erythematous Associated features: Warmth, Tenderness, Swelling, Inflammation, Weeping. No: Induration ED SKIN PROCEDURES - I&D Skin Prep: Providone-Iodine (Betadine) Local Anesthesia: Lidocaine: 1% Plain Local Anesthetic Volume: Other (8cc) Area Incised With: 11 Blade Drainage: Purulent, Bloody, Moderate Amount Probed to Break Up Loculations: Yes Packed With: 1 in. Iodoform Sterile Dressing: Adhesive Dressing Complications: No Course - Vital Signs Last Recorded V/S: Last Vital Signs Temp 99.6 F 07/31/20 08:00 Pulse 40 L 07/31/20 08:00 Resp 16 07/31/20 08:00 BP 92/55 L 07/31/20 08:00 Pulse Ox 98 07/31/20 08:00 - Orders/Labs/Meds Orders: Active Orders 24 hr Category Date Time Status CULTURE BLOOD [BC] Stat Lab 07/30/20 18:25 Received Dextrose 50% in Water Med 07/30/20 19:46 Active 50 ml IV ASDIRECTED PRN Medication Orders Acetaminophen (Tylenol) 650 mg PO Q4H PRN PRN Reason: Pain (Mild 1-3)/fever Hydrocodone Bitart/Acetaminophen ([place] 325-10 Mg) 1 tab PO Q4H PRN PRN Reason: Pain (Moderate to severe) Dextrose/Water (Dextrose 50% In Water) 50 ml IV ASDIRECTED PRN PRN Reason: Hypoglycemia Dextrose/Water (Dextrose 50% In Water) 50 ml IV ASDIRECTED PRN PRN Reason: Hypoglycemia Docusate Sodium (Colace) 100 mg PO BID PRN PRN Reason: Constipation Enoxaparin Sodium (Lovenox) 40 mg SUBCUT DAILY [facility] Last Admin: 07/31/20 08:55 Dose: 40 mg Documented by: VERONICA Glucagon (Glucagen) 1 mg IM ASDIRECTED PRN PRN Reason: Hypoglycemia Glucagon (Glucagen) 1 mg IM ASDIRECTED PRN PRN Reason: Hypoglycemia Potassium Chloride/Sodium Chloride (Normal Saline With 20 Meq Kcl) 1,000 mls @ 125 mls/hr IV ASDIRECTED [facility] Last Admin: 07/31/20 06:59 Dose: 125 mls/hr Documented by: Infusion: 07/31/20 06:40 Dose: 125 mls/hr Documented by: Admin: 07/30/20 22:40 Dose: 125 mls/hr Documented by: TU Vancomycin HCl 750 mg/ Sodium (Chloride) 250 mls @ 166.667 mls/hr IV Q12H [facility] Last Admin: 07/31/20 08:52 Dose: 166.667 mls/hr Documented by: VERONICA Piperacillin Sod/Tazobactam (Sod 3.375 gm/ Sodium Chloride) 100 mls @ 200 mls/hr IV Q6H [facility] Last Admin: 07/31/20 05:57 Dose: 200 mls/hr Documented by: CANDACE Insulin Glargine (Lantus) 10 unit SUBCUT BEDTIME [facility] Last Admin: 07/30/20 22:43 Dose: 10 units Documented by: TU Insulin Human Lispro (Humalog) 0 unit SUBCUT QIDACANDBED [facility]; Protocol Last Admin: 07/31/20 08:54 Dose: 4 units Documented by: VERONICA Ondansetron HCl (Zofran) 4 mg IVPUSH Q6H PRN PRN Reason: Nausea/Vomiting Ondansetron HCl (Zofran Odt) 4 mg PO Q6H PRN PRN Reason: nausea, able to take PO Sodium Chloride (Saline Flush) 10 ml FLUSH ASDIRECTED PRN PRN Reason: Keep Vein Open Temazepam (Restoril) 15 mg PO BEDTIME PRN PRN Reason: Sleep Last Admin: 07/30/20 22:45 Dose: 15 mg Documented by: TU Vancomycin HCl (Pharmacy To Dose - Vancomycin) 1 dose .XX ASDIRECTED [facility] Labs: Laboratory Tests 07/30/20 07/30/20 07/30/20 Range/Units 10:30 18:10 18:10 WBC 15.2 H (5.0-10.0) 10^3/uL RBC 5.26 (4.2-5.4) 10^6/uL Hgb 11.1 L D (12.0-16.0) g/dL Hct 34.9 L (37.0-47.0) % MCV 66.3 L (80-100) fL MCH 21.1 L (27.0-34.0) pg MCHC 31.8 L (33.0-35.0) g/dL Plt Count 347 (150-450) 10^3/uL Neut % (Auto) 78.8 H (42.2-75.2) % Lymph % (Auto) 14.6 L (20.5-50.1) % [place] % (Auto) 6.0 (2-8) % Eos % (Auto) 0.3 L (1.0-3.0) % Baso % (Auto) 0.3 (0.0-1.0) % Sodium 127 L (136-145) mmol/L Potassium 3.9 (3.5-5.1) mmol/L Chloride 91 L (98-107) mmol/L Carbon Dioxide 27 (21-32) mmol/L Anion Gap 12.9 (7-13) mEq/L BUN 8 (7-18) mg/dL Creatinine 0.79 (0.55-1.02) mg/dL Est Cr Clr Drug Dosing 67.78 mL/min Estimated GFR (MDRD) > 60 BUN/Creatinine Ratio 10.1 (No establ ref range) Glucose 492 H* (74-99) mg/dL Lactic Acid (0.4-2.0) mmol/L Calcium 8.8 (8.5-10.1) mg/dL Total Bilirubin 0.3 (0.2-1.0) mg/dL AST 11 L (15-37) U/L ALT 14 (14-59) U/L Alkaline Phosphatase 178 H (46-116) U/L C-Reactive Protein 7.8 H (0.0-0.9) mg/dL Total Protein 7.9 (6.4-8.2) g/dL Albumin 2.4 L (3.4-5.0) g/dL Globulin 5.5 Albumin/Globulin Ratio 0.44 Urine Color (YELLOW) Urine Appearance (CLEAR) Urine pH (5.0-9.0) Ur Specific [place] (1.005-1.030) Urine Protein (NEGATIVE) Urine Glucose (UA) (NEGATIVE) Urine Ketones (NEGATIVE) Urine Occult Blood (NEGATIVE) Urine Nitrite (NEGATIVE) Urine Bilirubin (NEGATIVE) Urine Urobilinogen (0.2-1.0) mg/dL Ur Leukocyte Esterase (NEGATIVE) Urine RBC /HPF Urine WBC (0-5/HPF) /HPF Ur Epithelial Cells (NOT SEEN) /HPF Amorphous Sediment (NOT SEEN) /HPF Urine Bacteria (0-FEW/HPF) /HPF Urine Mucus (NOT SEEN) /LPF Ketones Negative SARS CoV-2 RNA Rapid ROEL Negative (NEGATIVE) 07/30/20 07/30/20 Range/Units 18:10 18:40 WBC (5.0-10.0) 10^3/uL RBC (4.2-5.4) 10^6/uL Hgb (12.0-16.0) g/dL Hct (37.0-47.0) % MCV (80-100) fL MCH (27.0-34.0) pg MCHC (33.0-35.0) g/dL Plt Count (150-450) 10^3/uL Neut % (Auto) (42.2-75.2) % Lymph % (Auto) (20.5-50.1) % [place] % (Auto) (2-8) % Eos % (Auto) (1.0-3.0) % Baso % (Auto) (0.0-1.0) % Sodium (136-145) mmol/L Potassium (3.5-5.1) mmol/L Chloride (98-107) mmol/L Carbon Dioxide (21-32) mmol/L Anion Gap (7-13) mEq/L BUN (7-18) mg/dL Creatinine (0.55-1.02) mg/dL Est Cr Clr Drug Dosing mL/min Estimated GFR (MDRD) BUN/Creatinine Ratio (No establ ref range) Glucose (74-99) mg/dL Lactic Acid 2.7 H* (0.4-2.0) mmol/L Calcium (8.5-10.1) mg/dL Total Bilirubin (0.2-1.0) mg/dL AST (15-37) U/L ALT (14-59) U/L Alkaline Phosphatase (46-116) U/L C-Reactive Protein (0.0-0.9) mg/dL Total Protein (6.4-8.2) g/dL Albumin (3.4-5.0) g/dL Globulin Albumin/Globulin Ratio Urine Color Light yellow (YELLOW) Urine Appearance Cloudy (CLEAR) Urine pH 6.0 (5.0-9.0) Ur Specific [place] 1.010 (1.005-1.030) Urine Protein 100 H (NEGATIVE) Urine Glucose (UA) 500 H (NEGATIVE) Urine Ketones Negative (NEGATIVE) Urine Occult Blood Trace-intact H (NEGATIVE) Urine Nitrite Negative (NEGATIVE) Urine Bilirubin Negative (NEGATIVE) Urine Urobilinogen 0.2 (0.2-1.0) mg/dL Ur Leukocyte Esterase Negative (NEGATIVE) Urine RBC 0-5 /HPF Urine WBC 5-10 H (0-5/HPF) /HPF Ur Epithelial Cells Few (NOT SEEN) /HPF Amorphous Sediment Few (NOT SEEN) /HPF Urine Bacteria Many H (0-FEW/HPF) /HPF Urine Mucus Few H (NOT SEEN) /LPF Ketones SARS CoV-2 RNA Rapid ROEL (NEGATIVE) Meds: Medications Generic Name Dose Route Start Last Admin Trade Name Freq PRN Reason Stop Dose Admin Acetaminophen 650 mg 07/30/20 20:42 Tylenol PO Q4H PRN Pain (Mild 1-3)/fever Hydrocodone Bitart/Acetaminophen 1 tab 07/30/20 20:42 [place] 325-10 Mg PO Q4H PRN Pain (Moderate to severe) Dextrose/Water 50 ml 07/30/20 19:46 Dextrose 50% In Water IV ASDIRECTED PRN Hypoglycemia Dextrose/Water 50 ml 07/30/20 20:29 Dextrose 50% In Water IV ASDIRECTED PRN Hypoglycemia Docusate Sodium 100 mg 07/30/20 20:42 Colace PO BID PRN Constipation Enoxaparin Sodium 40 mg 07/31/20 09:00 07/31/20 08:55 Lovenox SUBCUT 40 mg DAILY JOHN Administration Glucagon 1 mg 07/30/20 20:29 Glucagen IM ASDIRECTED PRN Hypoglycemia Glucagon 1 mg 07/30/20 20:55 Glucagen IM ASDIRECTED PRN Hypoglycemia Potassium Chloride/Sodium Chloride 1,000 mls @ 125 mls/hr 07/30/20 20:45 07/31/20 06:59 Normal Saline With 20 Meq Kcl IV 125 mls/hr ASDIRECTED JOHN Administration Vancomycin HCl 750 mg/ Sodium 250 mls @ 166.667 mls/hr 07/31/20 09:00 07/31/20 08:52 Chloride IV 166.667 mls/hr Q12H JOHN Administration Piperacillin Sod/Tazobactam 100 mls @ 200 mls/hr 07/31/20 06:00 07/31/20 05:57 Sod 3.375 gm/ Sodium Chloride IV 200 mls/hr Q6H JOHN Administration Insulin Glargine 10 unit 07/30/20 21:00 07/30/20 22:43 Lantus SUBCUT 10 units BEDTIME JOHN Administration Insulin Human Lispro 0 unit 07/31/20 07:00 07/31/20 08:54 Humalog SUBCUT 4 units QIDACANDBED JOHN Administration Protocol Ondansetron HCl 4 mg 07/30/20 20:42 Zofran IVPUSH Q6H PRN Nausea/Vomiting Ondansetron HCl 4 mg 07/30/20 20:42 Zofran Odt PO Q6H PRN nausea, able to take PO Sodium Chloride 10 ml 07/30/20 20:42 Saline Flush FLUSH ASDIRECTED PRN Keep Vein Open Temazepam 15 mg 07/30/20 20:42 07/30/20 22:45 Restoril PO 15 mg BEDTIME PRN Administration Sleep Vancomycin HCl 1 dose 07/30/20 20:30 Pharmacy To Dose - Vancomycin .XX ASDIRECTED JOHN Discontinued Medications Generic Name Dose Route Start Last Admin Trade Name Freq PRN Reason Stop Dose Admin Acetaminophen 650 mg 07/30/20 19:47 07/30/20 19:58 Tylenol PO 07/30/20 19:48 650 mg NOW ONE Administration Bacitracin 1 dose 07/30/20 19:28 07/30/20 19:34 Bacitracin Oint 1 Gm TOP 07/30/20 19:29 1 dose ONETIME ONE Administration Dextrose/Water 50 ml 07/30/20 20:55 Dextrose 50% In Water IV ASDIRECTED PRN Hypoglycemia Diphenhydramine HCl 50 mg 07/30/20 19:45 07/30/20 19:59 Benadryl IVPUSH 07/30/20 19:46 50 mg ONETIME ONE Administration Glucagon 1 mg 07/30/20 19:46 Glucagen IM ASDIRECTED PRN Hypoglycemia Vancomycin HCl 750 mg/ Sodium 250 mls @ 166.667 mls/hr 07/30/20 19:43 07/30/20 20:03 Chloride IV 07/30/20 21:12 166.667 mls/hr ONETIME ONE Administration Piperacillin Sod/Tazobactam 100 mls @ 200 mls/hr 07/30/20 21:00 07/31/20 07:23 Sod 3.375 gm/ Sodium Chloride IV Not Given Q6H JOHN Vancomycin HCl 750 mg/ Sodium 250 mls @ 166.667 mls/hr 07/30/20 22:00 Chloride IV Q12H [facility] Insulin Human Lispro 10 unit 07/30/20 20:00 07/30/20 20:10 Humalog SUBCUT 07/30/20 20:01 10 unit ONETIME ONE Administration Insulin Human Lispro 0 unit 07/31/20 06:00 Humalog SUBCUT TIDAC [facility] Protocol Lidocaine HCl 30 ml 07/30/20 18:40 07/30/20 19:15 Xylocaine-Mpf 1% INJECT 07/30/20 18:41 30 ml ONETIME ONE Administration Lidocaine HCl Confirm 07/30/20 18:41 07/30/20 19:34 Xylocaine-Mpf 1% Administered 07/30/20 18:42 Not Given Dose 30 ml .ROUTE .STK-MED ONE - Re-Assessments/Exams Free Text/Narrative Re-Assessment/Exam: 07/30/20 I&D performed to abscess while awaiting patient's labs. BS elevated >400, Lactic acid 2.7, CRP 7.9, WBC 15. Patient started on Vancomycin IV. Humalog 10units started. Transmission Worker discussed case with Dr. Groves; d/t patient's history of noncompliance with DMII she is likely not a great candidate for treating this infection at home. Discussed plan, including need for IV antibiotics and blood sugar management, with the patient; she verbalized understanding and agreement with the plan of care. Patient to be admitted as an inpatient under Dr. Groves's care. Departure - Departure Time of Disposition: 19:20 Disposition: Admitted As Inpatient 66 Condition: Fair Clinical Impression: Abscess, scalp, Hyperglycemia - Discharge Information Sepsis Event Note (ED) - Evaluation Sepsis Screening Result: No Definite Risk - My Orders Last 24 Hours: My Active Orders 07/30/20 18:25 CULTURE BLOOD [BC] Stat 07/30/20 19:46 Dextrose 50% in Water 50 ml IV ASDIRECTED PRN - Assessment/Plan Last 24 Hours: My Active Orders 07/30/20 18:25 CULTURE BLOOD [BC] Stat 07/30/20 19:46 Dextrose 50% in Water 50 ml IV ASDIRECTED PRN
[2020-07-30] MEDS ORDERED: Lidocaine 1% 30 ML SDV INJECT ONE (18:40)
[2020-07-30] MEDS ORDERED: Lidocaine 1% 30 ML SDV ONE (18:41)
[2020-07-30 18:50] LABS: ANION GAP 12.9 mEq/L (7-13); CHLORIDE,CL 91 mmol/L (98-107); SODIUM,NA 127 mmol/L (136-145)
[2020-07-30] MEDS ORDERED: Bacitracin Oint 1 GM U/D Packet TOP ONE (19:28)
[2020-07-30] MEDS ORDERED: diphenhydrAMINE 50 MG/ML SDV IVPUSH ONE (19:45)
[2020-07-30] MEDS ORDERED: Glucagon,Human Recombinant 1 MG Vial IM PRN ×3 (19:46→20:55)
[2020-07-30] MEDS ORDERED: 50% Dextrose in Water 50 ML Syringe IV PRN ×3 (19:46→20:55)
[2020-07-30] MEDS ORDERED: Acetaminophen 325 MG Tab PO ONE (19:47)
[2020-07-30] MEDS ORDERED: Insulin Lispro 100 Units/ML 3 ML Vial SUBCUT ONE (20:00)
[2020-07-30] MEDS ORDERED: Ondansetron 4 MG/2 ML SDV IVPUSH PRN (20:42)
[2020-07-30] MEDS ORDERED: Docusate Sodium 100 MG Cap PO PRN (20:42)
[2020-07-30] MEDS ORDERED: Acetaminophen 325 MG Tab PO PRN (20:42)
[2020-07-30] MEDS ORDERED: Sodium Chloride 0.9% 10 ML Syringe FLUSH PRN (20:42)
[2020-07-30] MEDS ORDERED: Temazepam 15 MG Cap PO PRN (20:42)
[2020-07-30] MEDS ORDERED: Ondansetron 4 MG Tab.DIS PO PRN (20:42)
--- NOTE | 2020-07-30 20:52 | PCM.HP ---
H&P History of Present Illness - General Date of Service: 07/30/20 Admit Problem/Dx: Admission Diagnosis/Problem Admission Diagnosis/Problem Cellulitis and abscess Source of Information: Patient - History of Present Illness Initial Comments - Free Text/Narative: 40-year-old lady with a history of diabetes. The patient says she was diagnosed with diabetes about 10 years ago. She is not checking her blood sugars, not taking medications for this. She has family history of diabetes. She knows of no other chronic medical disease history. The patient developed a blister on the right anterior scalp. She noticed it first about 4 days prior to admission. the blister was enlarging, was not draining, was painful. In the emergency room was noted to have an abscess that was opened up. 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 hip Neurological History: Reports: None Psychiatric History: Reports: Addiction Endocrine/Metabolic History: Reports: Diabetes, Type I Hematologic History: Reports: None Immunologic History: Reports: None Oncologic (Cancer) History: Reports: None Dermatologic History: Reports: None - Infectious Disease History Infectious Disease History: Reports: None - Past Surgical History Female Surgical History: Reports: Tubal Ligation Social & Family History - Family History Family Medical History: No Pertinent Family History - Tobacco Use Tobacco Use Status *Q: Current Every Day Tobacco User Years of Tobacco use: 5 Packs/Tins Daily: 0.2 - Caffeine Use Caffeine Use: Reports: Soda Other Caffeine Use: 2 liter - Recreational Drug Use Recreational Drug Use: No H&P Review of Systems - Review of Systems: Review Of Systems: See Below General: Denies: Fever Pulmonary: Denies: Shortness of Breath Cardiovascular: Denies: Chest Pain Gastrointestinal: Denies: Abdominal Pain Psychiatric: Denies: Confusion Exam - Exam Exam: See Below - Vital Signs Vital Signs: Last Vital Signs Temp 97.6 F 07/30/20 18:17 Pulse 105 H 07/30/20 18:17 Resp 16 07/30/20 18:17 BP 102/64 07/30/20 18:17 Pulse Ox 100 07/30/20 18:17 Weight: 100 lb - Exam Quality Assessment: No: Supplemental Oxygen General: Alert, Oriented Neck: Supple Lungs: Clear to Auscultation, Normal Respiratory Effort Cardiovascular: Regular Rate, Regular Rhythm GI/Abdominal Exam: Normal Bowel Sounds, Soft, Non-Tender Extremities: No Pedal Edema Skin: Wound, Incision (Right upper scalp) - Patient Data Lab Results Last 24 hrs: Laboratory Results - last 24 hr 07/30/20 07/30/20 07/30/20 Range/Units 10:30 18:10 18:10 WBC 15.2 H (5.0-10.0) 10^3/uL RBC 5.26 (4.2-5.4) 10^6/uL Hgb 11.1 L D (12.0-16.0) g/dL Hct 34.9 L (37.0-47.0) % MCV 66.3 L (80-100) fL MCH 21.1 L (27.0-34.0) pg MCHC 31.8 L (33.0-35.0) g/dL Plt Count 347 (150-450) 10^3/uL Neut % (Auto) 78.8 H (42.2-75.2) % Lymph % (Auto) 14.6 L (20.5-50.1) % Clare % (Auto) 6.0 (2-8) % Eos % (Auto) 0.3 L (1.0-3.0) % Baso % (Auto) 0.3 (0.0-1.0) % Sodium 127 L (136-145) mmol/L Potassium 3.9 (3.5-5.1) mmol/L Chloride 91 L (98-107) mmol/L Carbon Dioxide 27 (21-32) mmol/L Anion Gap 12.9 (7-13) mEq/L BUN 8 (7-18) mg/dL Creatinine 0.79 (0.55-1.02) mg/dL Est Cr Clr Drug Dosing 67.78 mL/min Estimated GFR (MDRD) > 60 BUN/Creatinine Ratio 10.1 (No establ ref range) Glucose 492 H* (74-99) mg/dL Lactic Acid (0.4-2.0) mmol/L Calcium 8.8 (8.5-10.1) mg/dL Total Bilirubin 0.3 (0.2-1.0) mg/dL AST 11 L (15-37) U/L ALT 14 (14-59) U/L Alkaline Phosphatase 178 H (46-116) U/L C-Reactive Protein 7.8 H (0.0-0.9) mg/dL Total Protein 7.9 (6.4-8.2) g/dL Albumin 2.4 L (3.4-5.0) g/dL Globulin 5.5 Albumin/Globulin Ratio 0.44 Urine Color (YELLOW) Urine Appearance (CLEAR) Urine pH (5.0-9.0) Ur Specific [place] (1.005-1.030) Urine Protein (NEGATIVE) Urine Glucose (UA) (NEGATIVE) Urine Ketones (NEGATIVE) Urine Occult Blood (NEGATIVE) Urine Nitrite (NEGATIVE) Urine Bilirubin (NEGATIVE) Urine Urobilinogen (0.2-1.0) mg/dL Ur Leukocyte Esterase (NEGATIVE) Urine RBC /HPF Urine WBC (0-5/HPF) /HPF Ur Epithelial Cells (NOT SEEN) /HPF Amorphous Sediment (NOT SEEN) /HPF Urine Bacteria (0-FEW/HPF) /HPF Urine Mucus (NOT SEEN) /LPF Ketones Negative SARS CoV-2 RNA Rapid ROEL Negative (NEGATIVE) 07/30/20 07/30/20 Range/Units 18:10 18:40 WBC (5.0-10.0) 10^3/uL RBC (4.2-5.4) 10^6/uL Hgb (12.0-16.0) g/dL Hct (37.0-47.0) % MCV (80-100) fL MCH (27.0-34.0) pg MCHC (33.0-35.0) g/dL Plt Count (150-450) 10^3/uL Neut % (Auto) (42.2-75.2) % Lymph % (Auto) (20.5-50.1) % Clare % (Auto) (2-8) % Eos % (Auto) (1.0-3.0) % Baso % (Auto) (0.0-1.0) % Sodium (136-145) mmol/L Potassium (3.5-5.1) mmol/L Chloride (98-107) mmol/L Carbon Dioxide (21-32) mmol/L Anion Gap (7-13) mEq/L BUN (7-18) mg/dL Creatinine (0.55-1.02) mg/dL Est Cr Clr Drug Dosing mL/min Estimated GFR (MDRD) BUN/Creatinine Ratio (No establ ref range) Glucose (74-99) mg/dL Lactic Acid 2.7 H* (0.4-2.0) mmol/L Calcium (8.5-10.1) mg/dL Total Bilirubin (0.2-1.0) mg/dL AST (15-37) U/L ALT (14-59) U/L Alkaline Phosphatase (46-116) U/L C-Reactive Protein (0.0-0.9) mg/dL Total Protein (6.4-8.2) g/dL Albumin (3.4-5.0) g/dL Globulin Albumin/Globulin Ratio Urine Color Light yellow (YELLOW) Urine Appearance Cloudy (CLEAR) Urine pH 6.0 (5.0-9.0) Ur Specific [place] 1.010 (1.005-1.030) Urine Protein 100 H (NEGATIVE) Urine Glucose (UA) 500 H (NEGATIVE) Urine Ketones Negative (NEGATIVE) Urine Occult Blood Trace-intact H (NEGATIVE) Urine Nitrite Negative (NEGATIVE) Urine Bilirubin Negative (NEGATIVE) Urine Urobilinogen 0.2 (0.2-1.0) mg/dL Ur Leukocyte Esterase Negative (NEGATIVE) Urine RBC 0-5 /HPF Urine WBC 5-10 H (0-5/HPF) /HPF Ur Epithelial Cells Few (NOT SEEN) /HPF Amorphous Sediment Few (NOT SEEN) /HPF Urine Bacteria Many H (0-FEW/HPF) /HPF Urine Mucus Few H (NOT SEEN) /LPF Ketones SARS CoV-2 RNA Rapid ROEL (NEGATIVE) Result Diagrams: 07/30/20 18:10 07/30/20 18:10 - Problem List (1) Cellulitis SNOMED Code(s): 990763275 ICD Code: L03.90 - CELLULITIS, UNSPECIFIED Status: Acute Current Visit: Yes (2) Abscess, scalp SNOMED Code(s): 19442091 ICD Code: L02.811 - CUTANEOUS ABSCESS OF HEAD [ANY PART, EXCEPT FACE] Status: Acute Current Visit: Yes (3) Sepsis SNOMED Code(s): 17614886 ICD Code: A41.9 - SEPSIS, UNSPECIFIED ORGANISM Status: Acute Current Visit: Yes (4) Hyperglycemia SNOMED Code(s): 65749375 ICD Code: R73.9 - HYPERGLYCEMIA, UNSPECIFIED Status: Acute Current Visit: No (5) Hyponatremia syndrome SNOMED Code(s): 6154431 ICD Code: E87.1 - HYPO-OSMOLALITY AND HYPONATREMIA Status: Acute Current Visit: No Problem List Initiated/Reviewed/Updated: Yes Orders Last 24hrs: Active Orders 24 hr Category Date Time Status Admission Diagnosis [ADT] Stat ADT 07/30/20 19:52 Ordered Admission Status [Patient Status] [ADT] Routine ADT 07/30/20 19:52 Active Antiembolic Devices [RC] PER UNIT ROUTINE Care 07/30/20 20:44 Ordered Glucose [Blood Glucose Check, Bedside] [RC] QIDACANDBED Care 07/30/20 20:28 Ordered Oxygen Therapy [RC] PRN Care 07/30/20 20:42 Ordered Peripheral IV Care [RC] . DIRECTED Care 07/30/20 20:44 Ordered Up With Assistance [RC] ASDIRECTED Care 07/30/20 20:42 Ordered VTE/DVT Education [RC] PER UNIT ROUTINE Care 07/30/20 20:42 Ordered Vital Signs [RC] Q4H Care 07/30/20 20:42 Ordered Consistent Carbohydrate Diet [DIET] Diet 07/30/20 Breakfast Ordered BASIC METABOLIC PANEL,BMP [CHEM] AM Lab 07/31/20 05:15 Ordered CBC WITH AUTO DIFF [HEME] AM Lab 07/31/20 05:15 Ordered CULTURE BLOOD [BC] Stat Lab 07/30/20 18:25 Received CULTURE WOUND [RM] Routine Lab 07/30/20 19:14 Received LACTIC ACID [CHEM] AM Lab 07/31/20 05:11 Ordered LACTIC ACID [CHEM] Timed Lab 07/30/20 22:00 Ordered Acetaminophen [TylenoL] Med 07/30/20 20:42 Ordered 650 mg PO Q4H PRN Acetaminophen/HYDROcodone [[place] 325-10 MG] Med 07/30/20 20:42 Ordered 1 tab PO Q4H PRN Dextrose 50% in Water Med 07/30/20 19:46 Active 50 ml IV ASDIRECTED PRN Dextrose 50% in Water Med 07/30/20 20:29 Ordered 50 ml IV ASDIRECTED PRN Docusate Sodium [Colace] Med 07/30/20 20:42 Ordered 100 mg PO BID PRN Enoxaparin [Lovenox] Med 07/31/20 09:00 Ordered 40 mg SUBCUT DAILY Glucagon,Human Recombinant [GlucaGen] Med 07/30/20 19:46 Active 1 mg IM ASDIRECTED PRN Glucagon,Human Recombinant [GlucaGen] Med 07/30/20 20:29 Ordered 1 mg IM ASDIRECTED PRN Insulin Lispro [HumaLOG] Med 07/30/20 21:00 Ordered See Protocol SUBCUT ACBED Ondansetron [Zofran ODT] Med 07/30/20 20:42 Ordered 4 mg PO Q6H PRN Ondansetron [Zofran] Med 07/30/20 20:42 Ordered 4 mg IVPUSH Q6H PRN Pharmacy to Dose - Vancomycin Med 07/30/20 20:30 Ordered 1 dose .XX ASDIRECTED Piperacillin/Tazobactam [Zosyn] 3.375 gm Med 07/30/20 20:30 Ordered Sodium Chloride 0.9% [Normal Saline] 100 ml IV Q6H Sodium Chloride 0.9% [Saline Flush] Med 07/30/20 20:42 Ordered 10 ml FLUSH ASDIRECTED PRN Sodium Chloride 0.9% with KCl 20 mEq @ 125 mL/Hr (1000 Med 07/30/20 20:45 Ordered mL) NS + KCl 20mEq/L [Normal Saline with 20 mEq KCl] 1,000 ml IV ASDIRECTED Temazepam [Restoril] Med 07/30/20 20:42 Ordered 15 mg PO BEDTIME PRN Vancomycin 750 mg Med 07/30/20 19:43 Active Sodium Chloride 0.9% [Normal Saline] 250 ml IV ONETIME Antiembolic Hose [OM.PC] Per Unit Routine Oth 07/30/20 20:43 Ordered Peripheral IV Insertion Adult [OM.PC] Routine Oth 07/30/20 20:42 Ordered Resuscitation Status Routine Resus Stat 07/30/20 20:42 Ordered Medication Orders Acetaminophen (Tylenol) 650 mg PO Q4H PRN PRN Reason: Pain (Mild 1-3)/fever Hydrocodone Bitart/Acetaminophen ([place] 325-10 Mg) 1 tab PO Q4H PRN PRN Reason: Pain (Moderate to severe) Dextrose/Water (Dextrose 50% In Water) 50 ml IV ASDIRECTED PRN PRN Reason: Hypoglycemia Dextrose/Water (Dextrose 50% In Water) 50 ml IV ASDIRECTED PRN PRN Reason: Hypoglycemia Docusate Sodium (Colace) 100 mg PO BID PRN PRN Reason: Constipation Enoxaparin Sodium (Lovenox) 40 mg SUBCUT DAILY JOHN Glucagon (Glucagen) 1 mg IM ASDIRECTED PRN PRN Reason: Hypoglycemia Glucagon (Glucagen) 1 mg IM ASDIRECTED PRN PRN Reason: Hypoglycemia Vancomycin HCl 750 mg/ Sodium (Chloride) 250 mls @ 166.667 mls/hr IV ONETIME ONE Stop: 07/30/20 21:12 Last Admin: 07/30/20 20:03 Dose: 166.667 mls/hr Documented by: ARTEM Piperacillin Sod/Tazobactam (Sod 3.375 gm/ Sodium Chloride) 100 mls @ 200 mls/hr IV Q6H [facility] Potassium Chloride/Sodium Chloride (Normal Saline With 20 Meq Kcl) 1,000 mls @ 125 mls/hr IV ASDIRECTED [facility] Insulin Human Lispro (Humalog) 0 unit SUBCUT ACBED JOHN; Protocol Ondansetron HCl (Zofran) 4 mg IVPUSH Q6H PRN PRN Reason: Nausea/Vomiting Ondansetron HCl (Zofran Odt) 4 mg PO Q6H PRN PRN Reason: nausea, able to take PO Sodium Chloride (Saline Flush) 10 ml FLUSH ASDIRECTED PRN PRN Reason: Keep Vein Open Temazepam (Restoril) 15 mg PO BEDTIME PRN PRN Reason: Sleep Vancomycin HCl (Pharmacy To Dose - Vancomycin) 1 dose .XX ASDIRECTED [facility] Assessment/Plan Comment:: 40-year-old with a history of diabetes. On no medications, no medical treatment for diabetes for 10 years. Presented with the scalp abscess and cellulitis This was drained in the emergency room high risk for MRSA skin infection Obtain blood culture Obtain wound culture Treat empirically with Zosyn and vancomycin sepsis due to cellulitis Elevated lactic acid, tachycardia, leukocytosis on admission Recheck lactic acid in 4 hours IV fluids Treat infection diabetes Uncontrolled We will give IV fluids Follow blood sugars Supplemental insulin and hypoglycemia treatment as needed Add long-acting Lantus Will need diabetic teaching hyponatremia This is pseudohyponatremia due to elevated blood sugar Control diabetes IV hydration DVT prophylaxis with Lovenox
[2020-07-30] MEDS: NS + KCl 20mEq/L 1,000 ML IV SCH (22:40)
[2020-07-30] MEDS: Piperacillin/Tazobactam 3.375 GM in Sodium Chloride 0.9% 100 ML IV SCH (22:42)
[2020-07-30] MEDS: Insulin Glarg,Human.Rec.Analog 100 Unit/ML SUBCUT SCH (22:43)
[2020-07-31] MEDS: Piperacillin/Tazobactam 3.375 GM in Sodium Chloride 0.9% 100 ML IV SCH ×4 (05:57→13:29)
[2020-07-31] MEDS ORDERED: Insulin Lispro 100 Units/ML 3 ML Vial SUBCUT SCH (06:00)
[2020-07-31 06:56] LABS: CHLORIDE,CL 102 mmol/L (98-107); SODIUM,NA 136 mmol/L (136-145)
[2020-07-31] MEDS: NS + KCl 20mEq/L 1,000 ML IV SCH (06:59)
[2020-07-31] MEDS: Insulin Lispro 100 Units/ML 3 ML Vial SUBCUT SCH ×4 (08:54→21:13)
[2020-07-31] MEDS: Enoxaparin 40 MG/0.4 ML Syringe SUBCUT SCH (08:55)
[2020-07-31] MEDS: Acetaminophen/HYDROcodone 325-10 MG Tab PO PRN ×2 (10:36→17:25)
--- NOTE | 2020-07-31 12:42 | PCM.PN ---
- General Info Date of Service: 07/31/20 Admission Dx/Problem (Free Text): Admission Diagnosis/Problem Admission Diagnosis/Problem Cellulitis and abscess Subjective Update: Feeling better. Remained stable overnight. No chills or fever. Feels puffiness around the eyes. complaining of moderate pain at the site of the abscess, minimal drainage associated with this Functional Status: Reports: Tolerating Diet, Ambulating - Review of Systems General: Denies: Fever, Weakness Pulmonary: Denies: Shortness of Breath Cardiovascular: Denies: Chest Pain Gastrointestinal: Denies: Abdominal Pain Genitourinary: Denies: Dysuria Psychiatric: Denies: Confusion - Patient Data Vitals - Most Recent: Last Vital Signs Temp 99.6 F 07/31/20 08:00 Pulse 40 L 07/31/20 08:00 Resp 16 07/31/20 08:00 BP 92/55 L 07/31/20 08:00 Pulse Ox 98 07/31/20 08:00 Weight - Most Recent: 100 lb Lab Results Last 24 Hours: Laboratory Results - last 24 hr 07/30/20 07/30/20 07/30/20 Range/Units 10:30 18:10 18:10 WBC 15.2 H (5.0-10.0) 10^3/uL RBC 5.26 (4.2-5.4) 10^6/uL Hgb 11.1 L D (12.0-16.0) g/dL Hct 34.9 L (37.0-47.0) % MCV 66.3 L (80-100) fL MCH 21.1 L (27.0-34.0) pg MCHC 31.8 L (33.0-35.0) g/dL Plt Count 347 (150-450) 10^3/uL Neut % (Auto) 78.8 H (42.2-75.2) % Lymph % (Auto) 14.6 L (20.5-50.1) % [place] % (Auto) 6.0 (2-8) % Eos % (Auto) 0.3 L (1.0-3.0) % Baso % (Auto) 0.3 (0.0-1.0) % Sodium 127 L (136-145) mmol/L Potassium 3.9 (3.5-5.1) mmol/L Chloride 91 L (98-107) mmol/L Carbon Dioxide 27 (21-32) mmol/L Anion Gap 12.9 (7-13) mEq/L BUN 8 (7-18) mg/dL Creatinine 0.79 (0.55-1.02) mg/dL Est Cr Clr Drug Dosing 67.78 mL/min Estimated GFR (MDRD) > 60 BUN/Creatinine Ratio 10.1 (No establ ref range) Glucose 492 H* (74-99) mg/dL POC Glucose (70-105) mg/dl Lactic Acid (0.4-2.0) mmol/L Calcium 8.8 (8.5-10.1) mg/dL Total Bilirubin 0.3 (0.2-1.0) mg/dL AST 11 L (15-37) U/L ALT 14 (14-59) U/L Alkaline Phosphatase 178 H (46-116) U/L C-Reactive Protein 7.8 H (0.0-0.9) mg/dL Total Protein 7.9 (6.4-8.2) g/dL Albumin 2.4 L (3.4-5.0) g/dL Globulin 5.5 Albumin/Globulin Ratio 0.44 Urine Color (YELLOW) Urine Appearance (CLEAR) Urine pH (5.0-9.0) Ur Specific [place] (1.005-1.030) Urine Protein (NEGATIVE) Urine Glucose (UA) (NEGATIVE) Urine Ketones (NEGATIVE) Urine Occult Blood (NEGATIVE) Urine Nitrite (NEGATIVE) Urine Bilirubin (NEGATIVE) Urine Urobilinogen (0.2-1.0) mg/dL Ur Leukocyte Esterase (NEGATIVE) Urine RBC /HPF Urine WBC (0-5/HPF) /HPF Ur Epithelial Cells (NOT SEEN) /HPF Amorphous Sediment (NOT SEEN) /HPF Urine Bacteria (0-FEW/HPF) /HPF Urine Mucus (NOT SEEN) /LPF Ketones Negative SARS CoV-2 RNA Rapid ROEL Negative (NEGATIVE) 07/30/20 07/30/20 07/30/20 Range/Units 18:10 18:40 22:16 WBC (5.0-10.0) 10^3/uL RBC (4.2-5.4) 10^6/uL Hgb (12.0-16.0) g/dL Hct (37.0-47.0) % MCV (80-100) fL MCH (27.0-34.0) pg MCHC (33.0-35.0) g/dL Plt Count (150-450) 10^3/uL Neut % (Auto) (42.2-75.2) % Lymph % (Auto) (20.5-50.1) % [place] % (Auto) (2-8) % Eos % (Auto) (1.0-3.0) % Baso % (Auto) (0.0-1.0) % Sodium (136-145) mmol/L Potassium (3.5-5.1) mmol/L Chloride (98-107) mmol/L Carbon Dioxide (21-32) mmol/L Anion Gap (7-13) mEq/L BUN (7-18) mg/dL Creatinine (0.55-1.02) mg/dL Est Cr Clr Drug Dosing mL/min Estimated GFR (MDRD) BUN/Creatinine Ratio (No establ ref range) Glucose (74-99) mg/dL POC Glucose (70-105) mg/dl Lactic Acid 2.7 H* 2.8 H* (0.4-2.0) mmol/L Calcium (8.5-10.1) mg/dL Total Bilirubin (0.2-1.0) mg/dL AST (15-37) U/L ALT (14-59) U/L Alkaline Phosphatase (46-116) U/L C-Reactive Protein (0.0-0.9) mg/dL Total Protein (6.4-8.2) g/dL Albumin (3.4-5.0) g/dL Globulin Albumin/Globulin Ratio Urine Color Light yellow (YELLOW) Urine Appearance Cloudy (CLEAR) Urine pH 6.0 (5.0-9.0) Ur Specific [place] 1.010 (1.005-1.030) Urine Protein 100 H (NEGATIVE) Urine Glucose (UA) 500 H (NEGATIVE) Urine Ketones Negative (NEGATIVE) Urine Occult Blood Trace-intact H (NEGATIVE) Urine Nitrite Negative (NEGATIVE) Urine Bilirubin Negative (NEGATIVE) Urine Urobilinogen 0.2 (0.2-1.0) mg/dL Ur Leukocyte Esterase Negative (NEGATIVE) Urine RBC 0-5 /HPF Urine WBC 5-10 H (0-5/HPF) /HPF Ur Epithelial Cells Few (NOT SEEN) /HPF Amorphous Sediment Few (NOT SEEN) /HPF Urine Bacteria Many H (0-FEW/HPF) /HPF Urine Mucus Few H (NOT SEEN) /LPF Ketones SARS CoV-2 RNA Rapid ROEL (NEGATIVE) 07/30/20 07/31/20 07/31/20 Range/Units 22:30 06:14 06:14 WBC 9.3 (5.0-10.0) 10^3/uL RBC 4.59 (4.2-5.4) 10^6/uL Hgb 9.7 L (12.0-16.0) g/dL Hct 30.6 L (37.0-47.0) % MCV 66.7 L (80-100) fL MCH 21.1 L (27.0-34.0) pg MCHC 31.7 L (33.0-35.0) g/dL Plt Count 344 (150-450) 10^3/uL Neut % (Auto) 52.3 (42.2-75.2) % Lymph % (Auto) 35.9 (20.5-50.1) % [place] % (Auto) 9.5 H (2-8) % Eos % (Auto) 1.8 (1.0-3.0) % Baso % (Auto) 0.5 (0.0-1.0) % Sodium 136 (136-145) mmol/L Potassium 4.0 (3.5-5.1) mmol/L Chloride 102 (98-107) mmol/L Carbon Dioxide 26 (21-32) mmol/L Anion Gap 12.0 (7-13) mEq/L BUN 12 (7-18) mg/dL Creatinine 0.56 (0.55-1.02) mg/dL Est Cr Clr Drug Dosing 95.62 mL/min Estimated GFR (MDRD) > 60 BUN/Creatinine Ratio (No establ ref range) Glucose 245 H (74-99) mg/dL POC Glucose 316 H (70-105) mg/dl Lactic Acid (0.4-2.0) mmol/L Calcium 8.1 L (8.5-10.1) mg/dL Total Bilirubin (0.2-1.0) mg/dL AST (15-37) U/L ALT (14-59) U/L Alkaline Phosphatase (46-116) U/L C-Reactive Protein (0.0-0.9) mg/dL Total Protein (6.4-8.2) g/dL Albumin (3.4-5.0) g/dL Globulin Albumin/Globulin Ratio Urine Color (YELLOW) Urine Appearance (CLEAR) Urine pH (5.0-9.0) Ur Specific [place] (1.005-1.030) Urine Protein (NEGATIVE) Urine Glucose (UA) (NEGATIVE) Urine Ketones (NEGATIVE) Urine Occult Blood (NEGATIVE) Urine Nitrite (NEGATIVE) Urine Bilirubin (NEGATIVE) Urine Urobilinogen (0.2-1.0) mg/dL Ur Leukocyte Esterase (NEGATIVE) Urine RBC /HPF Urine WBC (0-5/HPF) /HPF Ur Epithelial Cells (NOT SEEN) /HPF Amorphous Sediment (NOT SEEN) /HPF Urine Bacteria (0-FEW/HPF) /HPF Urine Mucus (NOT SEEN) /LPF Ketones SARS CoV-2 RNA Rapid ROEL (NEGATIVE) 07/31/20 07/31/20 07/31/20 Range/Units 06:14 07:31 11:41 WBC (5.0-10.0) 10^3/uL RBC (4.2-5.4) 10^6/uL Hgb (12.0-16.0) g/dL Hct (37.0-47.0) % MCV (80-100) fL MCH (27.0-34.0) pg MCHC (33.0-35.0) g/dL Plt Count (150-450) 10^3/uL Neut % (Auto) (42.2-75.2) % Lymph % (Auto) (20.5-50.1) % [place] % (Auto) (2-8) % Eos % (Auto) (1.0-3.0) % Baso % (Auto) (0.0-1.0) % Sodium (136-145) mmol/L Potassium (3.5-5.1) mmol/L Chloride (98-107) mmol/L Carbon Dioxide (21-32) mmol/L Anion Gap (7-13) mEq/L BUN (7-18) mg/dL Creatinine (0.55-1.02) mg/dL Est Cr Clr Drug Dosing mL/min Estimated GFR (MDRD) BUN/Creatinine Ratio (No establ ref range) Glucose (74-99) mg/dL POC Glucose 328 H 278 H (70-105) mg/dl Lactic Acid 0.9 (0.4-2.0) mmol/L Calcium (8.5-10.1) mg/dL Total Bilirubin (0.2-1.0) mg/dL AST (15-37) U/L ALT (14-59) U/L Alkaline Phosphatase (46-116) U/L C-Reactive Protein (0.0-0.9) mg/dL Total Protein (6.4-8.2) g/dL Albumin (3.4-5.0) g/dL Globulin Albumin/Globulin Ratio Urine Color (YELLOW) Urine Appearance (CLEAR) Urine pH (5.0-9.0) Ur Specific [place] (1.005-1.030) Urine Protein (NEGATIVE) Urine Glucose (UA) (NEGATIVE) Urine Ketones (NEGATIVE) Urine Occult Blood (NEGATIVE) Urine Nitrite (NEGATIVE) Urine Bilirubin (NEGATIVE) Urine Urobilinogen (0.2-1.0) mg/dL Ur Leukocyte Esterase (NEGATIVE) Urine RBC /HPF Urine WBC (0-5/HPF) /HPF Ur Epithelial Cells (NOT SEEN) /HPF Amorphous Sediment (NOT SEEN) /HPF Urine Bacteria (0-FEW/HPF) /HPF Urine Mucus (NOT SEEN) /LPF Ketones SARS CoV-2 RNA Rapid ROEL (NEGATIVE) Med Orders - Current: Current Medications Acetaminophen (Tylenol) 650 mg PO Q4H PRN PRN Reason: Pain (Mild 1-3)/fever Hydrocodone Bitart/Acetaminophen ([place] 325-10 Mg) 1 tab PO Q4H PRN PRN Reason: Pain (Moderate to severe) Last Admin: 07/31/20 10:36 Dose: 1 tab Documented by: Cephalexin (Keflex) 500 mg PO Q6HR [facility] Dextrose/Water (Dextrose 50% In Water) 50 ml IV ASDIRECTED PRN PRN Reason: Hypoglycemia Dextrose/Water (Dextrose 50% In Water) 50 ml IV ASDIRECTED PRN PRN Reason: Hypoglycemia Docusate Sodium (Colace) 100 mg PO BID PRN PRN Reason: Constipation Enoxaparin Sodium (Lovenox) 40 mg SUBCUT DAILY [facility] Last Admin: 07/31/20 08:55 Dose: 40 mg Documented by: Glucagon (Glucagen) 1 mg IM ASDIRECTED PRN PRN Reason: Hypoglycemia Glucagon (Glucagen) 1 mg IM ASDIRECTED PRN PRN Reason: Hypoglycemia Insulin Glargine (Lantus) 10 unit SUBCUT BEDTIME [facility] Last Admin: 07/30/20 22:43 Dose: 10 units Documented by: Insulin Human Lispro (Humalog) 0 unit SUBCUT QIDACANDBED [facility]; Protocol Last Admin: 07/31/20 08:54 Dose: 4 units Documented by: Ondansetron HCl (Zofran) 4 mg IVPUSH Q6H PRN PRN Reason: Nausea/Vomiting Ondansetron HCl (Zofran Odt) 4 mg PO Q6H PRN PRN Reason: nausea, able to take PO Sodium Chloride (Saline Flush) 10 ml FLUSH ASDIRECTED PRN PRN Reason: Keep Vein Open Temazepam (Restoril) 15 mg PO BEDTIME PRN PRN Reason: Sleep Last Admin: 07/30/20 22:45 Dose: 15 mg Documented by: Trimethoprim/Sulfamethoxazole (Septra Ds) 1 tab PO BID [facility] Discontinued Medications Acetaminophen (Tylenol) 650 mg PO NOW ONE Stop: 07/30/20 19:48 Last Admin: 07/30/20 19:58 Dose: 650 mg Documented by: Bacitracin (Bacitracin Oint 1 Gm) 1 dose TOP ONETIME ONE Stop: 07/30/20 19:29 Last Admin: 07/30/20 19:34 Dose: 1 dose Documented by: Dextrose/Water (Dextrose 50% In Water) 50 ml IV ASDIRECTED PRN PRN Reason: Hypoglycemia Diphenhydramine HCl (Benadryl) 50 mg IVPUSH ONETIME ONE Stop: 07/30/20 19:46 Last Admin: 07/30/20 19:59 Dose: 50 mg Documented by: Glucagon (Glucagen) 1 mg IM ASDIRECTED PRN PRN Reason: Hypoglycemia Vancomycin HCl 750 mg/ Sodium (Chloride) 250 mls @ 166.667 mls/hr IV ONETIME ONE Stop: 07/30/20 21:12 Last Admin: 07/30/20 20:03 Dose: 166.667 mls/hr Documented by: Piperacillin Sod/Tazobactam (Sod 3.375 gm/ Sodium Chloride) 100 mls @ 200 mls/hr IV Q6H [facility] Last Admin: 07/31/20 07:23 Dose: Not Given Documented by: Potassium Chloride/Sodium Chloride (Normal Saline With 20 Meq Kcl) 1,000 mls @ 125 mls/hr IV ASDIRECTED [facility] Last Admin: 07/31/20 06:59 Dose: 125 mls/hr Documented by: Vancomycin HCl 750 mg/ Sodium (Chloride) 250 mls @ 166.667 mls/hr IV Q12H JOHN Vancomycin HCl 750 mg/ Sodium (Chloride) 250 mls @ 166.667 mls/hr IV Q12H JOHN Last Admin: 07/31/20 08:52 Dose: 166.667 mls/hr Documented by: Piperacillin Sod/Tazobactam (Sod 3.375 gm/ Sodium Chloride) 100 mls @ 200 mls/hr IV Q6H JOHN Last Admin: 07/31/20 05:57 Dose: 200 mls/hr Documented by: Insulin Human Lispro (Humalog) 10 unit SUBCUT ONETIME ONE Stop: 07/30/20 20:01 Last Admin: 07/30/20 20:10 Dose: 10 unit Documented by: Insulin Human Lispro (Humalog) 0 unit SUBCUT TIDAC [facility]; Protocol Lidocaine HCl (Xylocaine-Mpf 1%) 30 ml INJECT ONETIME ONE Stop: 07/30/20 18:41 Last Admin: 07/30/20 19:15 Dose: 30 ml Documented by: Lidocaine HCl (Xylocaine-Mpf 1%) Confirm Administered Dose 30 ml .ROUTE .STK-MED ONE Stop: 07/30/20 18:42 Last Admin: 07/30/20 19:34 Dose: Not Given Documented by: Vancomycin HCl (Pharmacy To Dose - Vancomycin) 1 dose .XX ASDIRECTED [facility] - Exam Quality Assessment: No: Supplemental Oxygen General: Alert, Oriented Lungs: Clear to Auscultation, Normal Respiratory Effort Cardiovascular: Regular Rate, Regular Rhythm Extremities: No Pedal Edema Sepsis Event Note - Evaluation Sepsis Screening Result: No Definite Risk - Focused Exam Vital Signs: Vital Signs Temp Pulse Resp BP Pulse Ox 07/31/20 08:00 99.6 F 40 L 16 92/55 L 98 07/31/20 04:00 96.2 F L 74 18 152/68 H 99 07/31/20 00:42 97.3 F 72 16 104/52 L 99 - Problem List & Annotations (1) Cellulitis SNOMED Code(s): 218755407 Code(s): L03.90 - CELLULITIS, UNSPECIFIED Status: Acute Current Visit: Yes (2) Abscess, scalp SNOMED Code(s): 87640390 Code(s): L02.811 - CUTANEOUS ABSCESS OF HEAD [ANY PART, EXCEPT FACE] Status: Acute Current Visit: Yes (3) Sepsis SNOMED Code(s): 07701168 Code(s): A41.9 - SEPSIS, UNSPECIFIED ORGANISM Status: Acute Current Visit: Yes (4) Hyperglycemia SNOMED Code(s): 90499515 Code(s): R73.9 - HYPERGLYCEMIA, UNSPECIFIED Status: Acute Current Visit: Yes (5) Hyponatremia syndrome SNOMED Code(s): 8684219 Code(s): E87.1 - HYPO-OSMOLALITY AND HYPONATREMIA Status: Acute Current Visit: No - Problem List Review Problem List Initiated/Reviewed/Updated: Yes - My Orders Last 24 Hours: My Active Orders 07/30/20 20:28 Glucose [Blood Glucose Check, Bedside] [RC] QIDACANDBED 07/30/20 20:29 Dextrose 50% in Water 50 ml IV ASDIRECTED PRN Glucagon,Human Recombinant [GlucaGen] 1 mg IM ASDIRECTED PRN 07/30/20 20:42 Oxygen Therapy [RC] PRN Up With Assistance [RC] ASDIRECTED VTE/DVT Education [RC] PER UNIT ROUTINE Vital Signs [RC] Q4H Acetaminophen [TylenoL] 650 mg PO Q4H PRN Acetaminophen/HYDROcodone [[place] 325-10 MG] 1 tab PO Q4H PRN Docusate Sodium [Colace] 100 mg PO BID PRN Ondansetron [Zofran ODT] 4 mg PO Q6H PRN Ondansetron [Zofran] 4 mg IVPUSH Q6H PRN Sodium Chloride 0.9% [Saline Flush] 10 ml FLUSH ASDIRECTED PRN Temazepam [Restoril] 15 mg PO BEDTIME PRN Peripheral IV Insertion Adult [OM.PC] Routine Resuscitation Status Routine 07/30/20 20:43 Antiembolic Hose [OM.PC] Per Unit Routine 07/30/20 20:44 Antiembolic Devices [RC] Peripheral IV Care [RC] 07/30/20 20:55 Glucagon,Human Recombinant [GlucaGen] 1 mg IM ASDIRECTED PRN 07/30/20 21:00 Insulin Glarg,Human.Rec.Analog [LantUS] 10 unit SUBCUT BEDTIME 07/31/20 07:00 Insulin Lispro [HumaLOG] 0 unit SUBCUT QIDACANDBED 07/31/20 09:00 Enoxaparin [Lovenox] 40 mg SUBCUT DAILY 07/31/20 11:17 Consult to Diabetic Nurse Specialist [CONS] Routine 07/31/20 12:45 Sulfamethoxazole/Trimethoprim [Septra DS] 1 tab PO BID 07/31/20 18:00 cephALEXin [Keflex] 500 mg PO Q6HR 08/01/20 08:30 VANCOMYCIN TROUGH [CHEM] Timed - Plan Plan:: 40-year-old with a history of diabetes. On no medications, no medical treatment for diabetes for 10 years. Presented with the scalp abscess and cellulitis This was drained in the emergency room high risk for MRSA skin infection pending blood culture pending wound culture Treated empirically with Zosyn and vancomycin leukocytosis is better, sepsis resolved we will switch to oral Bactrim and Keflex sepsis due to cellulitis Elevated lactic acid, tachycardia, leukocytosis on admission resolved stop IV fluids Treat infection diabetes Uncontrolled started Lantus We will have diabetic education Follow blood sugars Supplemental insulin and hypoglycemia treatment as needed hyponatremia This was pseudohyponatremia due to elevated blood sugar Control diabetes DVT prophylaxis with Lovenox
[2020-07-31] MEDS: Sulfamethoxazole/Trimethoprim 800-160 MG Tab PO SCH ×2 (14:13→21:13)
[2020-07-31] MEDS: Cephalexin 500 MG Cap PO SCH (17:25)
[2020-07-31] MEDS: Insulin Glarg,Human.Rec.Analog 100 Unit/ML SUBCUT SCH (21:14)
[2020-08-01] MEDS: Cephalexin 500 MG Cap PO SCH ×3 (00:29→12:39)
--- NOTE | 2020-08-01 07:42 | PCM.DCSUM1 ---
Discharge Summary - Hospital Course Free Text/Narrative:: 40-year-old with a history of diabetes. On no medications, no medical treatment for diabetes for 10 years. Presented with scalp abscess and cellulitis This was drained in the emergency room pending blood culture pending wound culture Treated empirically with Zosyn and vancomycin leukocytosis is better, sepsis resolved switched to oral Bactrim and Keflex sepsis due to cellulitis Elevated lactic acid, tachycardia, leukocytosis on admission resolved diabetes Uncontrolled started Lantus had diabetic education follow with clinic for further management of DM hyponatremia This was pseudohyponatremia due to elevated blood sugar resolved - Discharge Data Discharge Date: 08/01/20 Discharge Disposition: Home, Self-Care 01 Condition: Fair - Referral to Home Health Primary Care Physician: PCP None - Discharge Diagnosis/Problem(s) (1) Cellulitis SNOMED Code(s): 137942143 ICD Code: L03.90 - CELLULITIS, UNSPECIFIED Status: Acute Current Visit: Yes (2) Abscess, scalp SNOMED Code(s): 18416373 ICD Code: L02.811 - CUTANEOUS ABSCESS OF HEAD [ANY PART, EXCEPT FACE] Status: Acute Current Visit: Yes (3) Sepsis SNOMED Code(s): 42974119 ICD Code: A41.9 - SEPSIS, UNSPECIFIED ORGANISM Status: Acute Current Visit: Yes (4) Hyperglycemia SNOMED Code(s): 55685350 ICD Code: R73.9 - HYPERGLYCEMIA, UNSPECIFIED Status: Acute Current Visit: Yes (5) Hyponatremia syndrome SNOMED Code(s): 5028967 ICD Code: E87.1 - HYPO-OSMOLALITY AND HYPONATREMIA Status: Acute Current Visit: No - Patient Summary/Data Consults: Consultations 07/31/20 11:17 Consult to Diabetic Nurse Specialist [CONS] Routine - Patient Instructions Diet: Diabetic Diet Activity: As Tolerated - Discharge Plan Prescriptions/Med Rec: cephALEXin [Keflex] 500 mg PO Q6HR #20 cap Insulin Glarg,Human.Rec.Analog [Lantus] 10 unit SUBCUT BEDTIME #1 pen Sulfamethoxazole/Trimethoprim [Septra DS] 1 tab PO BID #10 tablet Home Medications: Home Meds Insulin Glarg,Human.Rec.Analog [Lantus] 10 unit SUBCUT BEDTIME #1 pen 08/01/20 [Rx] Sulfamethoxazole/Trimethoprim [Septra DS] 1 tab PO BID #10 tablet 08/01/20 [Rx] cephALEXin [Keflex] 500 mg PO Q6HR #20 cap 08/01/20 [Rx] Forms: ED Department Discharge - Discharge Summary/Plan Comment DC Time >30 min.: No - General Info Date of Service: 08/01/20 Functional Status: Reports: Tolerating Diet, Ambulating - Review of Systems General: Denies: Fever, Weakness Pulmonary: Denies: Shortness of Breath Cardiovascular: Denies: Chest Pain Gastrointestinal: Denies: Abdominal Pain - Patient Data Vitals - Most Recent: Last Vital Signs Temp 98.4 F 08/01/20 04:00 Pulse 75 08/01/20 04:00 Resp 16 08/01/20 04:00 BP 97/62 07/31/20 20:00 Pulse Ox 97 08/01/20 04:00 Weight - Most Recent: 100 lb I&O - Last 24 hours: Intake & Output 07/31/20 08/01/20 08/01/20 22:59 06:59 14:59 Intake Total 350 Balance 350 Lab Results - Last 24 hrs: Laboratory Results - last 24 hr 07/30/20 07/31/20 07/31/20 Range/Units 20:10 06:14 07:31 WBC 9.3 (5.0-10.0) 10^3/uL RBC 4.59 (4.2-5.4) 10^6/uL Hgb 9.7 L (12.0-16.0) g/dL Hct 30.6 L (37.0-47.0) % MCV 66.7 L (80-100) fL MCH 21.1 L (27.0-34.0) pg MCHC 31.7 L (33.0-35.0) g/dL Plt Count 344 (150-450) 10^3/uL Neut % (Auto) 52.3 (42.2-75.2) % Lymph % (Auto) 35.9 (20.5-50.1) % [place] % (Auto) 9.5 H (2-8) % Eos % (Auto) 1.8 (1.0-3.0) % Baso % (Auto) 0.5 (0.0-1.0) % POC Glucose 393 H 328 H (70-105) mg/dl 07/31/20 07/31/20 07/31/20 Range/Units 11:41 16:16 21:09 WBC (5.0-10.0) 10^3/uL RBC (4.2-5.4) 10^6/uL Hgb (12.0-16.0) g/dL Hct (37.0-47.0) % MCV (80-100) fL MCH (27.0-34.0) pg MCHC (33.0-35.0) g/dL Plt Count (150-450) 10^3/uL Neut % (Auto) (42.2-75.2) % Lymph % (Auto) (20.5-50.1) % [place] % (Auto) (2-8) % Eos % (Auto) (1.0-3.0) % Baso % (Auto) (0.0-1.0) % POC Glucose 278 H 251 H 194 H (70-105) mg/dl DAE Results - Last 24 hrs: Microbiology 07/30/20 18:25 Aerobic Blood Culture - Preliminary Blood - Arm, Right NO GROWTH AFTER 1 DAY Anaerobic Blood Culture - Preliminary NO GROWTH AFTER 1 DAY Med Orders - Current: Current Medications Acetaminophen (Tylenol) 650 mg PO Q4H PRN PRN Reason: Pain (Mild 1-3)/fever Hydrocodone Bitart/Acetaminophen ([place] 325-10 Mg) 1 tab PO Q4H PRN PRN Reason: Pain (Moderate to severe) Last Admin: 07/31/20 17:25 Dose: 1 tab Documented by: Cephalexin (Keflex) 500 mg PO Q6HR [facility] Last Admin: 08/01/20 06:23 Dose: 500 mg Documented by: Dextrose/Water (Dextrose 50% In Water) 50 ml IV ASDIRECTED PRN PRN Reason: Hypoglycemia Dextrose/Water (Dextrose 50% In Water) 50 ml IV ASDIRECTED PRN PRN Reason: Hypoglycemia Docusate Sodium (Colace) 100 mg PO BID PRN PRN Reason: Constipation Enoxaparin Sodium (Lovenox) 40 mg SUBCUT DAILY [facility] Last Admin: 07/31/20 08:55 Dose: 40 mg Documented by: Glucagon (Glucagen) 1 mg IM ASDIRECTED PRN PRN Reason: Hypoglycemia Glucagon (Glucagen) 1 mg IM ASDIRECTED PRN PRN Reason: Hypoglycemia Insulin Glargine (Lantus) 10 unit SUBCUT BEDTIME [facility] Last Admin: 07/31/20 21:14 Dose: 10 units Documented by: Insulin Human Lispro (Humalog) 0 unit SUBCUT QIDACANDBED [facility]; Protocol Last Admin: 07/31/20 21:13 Dose: 1 units Documented by: Ondansetron HCl (Zofran) 4 mg IVPUSH Q6H PRN PRN Reason: Nausea/Vomiting Ondansetron HCl (Zofran Odt) 4 mg PO Q6H PRN PRN Reason: nausea, able to take PO Sodium Chloride (Saline Flush) 10 ml FLUSH ASDIRECTED PRN PRN Reason: Keep Vein Open Temazepam (Restoril) 15 mg PO BEDTIME PRN PRN Reason: Sleep Last Admin: 07/30/20 22:45 Dose: 15 mg Documented by: Trimethoprim/Sulfamethoxazole (Septra Ds) 1 tab PO BID [facility] Last Admin: 07/31/20 21:13 Dose: 1 tab Documented by: Discontinued Medications Acetaminophen (Tylenol) 650 mg PO NOW ONE Stop: 07/30/20 19:48 Last Admin: 07/30/20 19:58 Dose: 650 mg Documented by: Bacitracin (Bacitracin Oint 1 Gm) 1 dose TOP ONETIME ONE Stop: 07/30/20 19:29 Last Admin: 07/30/20 19:34 Dose: 1 dose Documented by: Dextrose/Water (Dextrose 50% In Water) 50 ml IV ASDIRECTED PRN PRN Reason: Hypoglycemia Diphenhydramine HCl (Benadryl) 50 mg IVPUSH ONETIME ONE Stop: 07/30/20 19:46 Last Admin: 07/30/20 19:59 Dose: 50 mg Documented by: Glucagon (Glucagen) 1 mg IM ASDIRECTED PRN PRN Reason: Hypoglycemia Vancomycin HCl 750 mg/ Sodium (Chloride) 250 mls @ 166.667 mls/hr IV ONETIME ONE Stop: 07/30/20 21:12 Last Admin: 07/30/20 20:03 Dose: 166.667 mls/hr Documented by: Piperacillin Sod/Tazobactam (Sod 3.375 gm/ Sodium Chloride) 100 mls @ 200 mls/hr IV Q6H [facility] Last Admin: 07/31/20 07:23 Dose: Not Given Documented by: Potassium Chloride/Sodium Chloride (Normal Saline With 20 Meq Kcl) 1,000 mls @ 125 mls/hr IV ASDIRECTED [facility] Last Infusion: 07/31/20 14:21 Dose: 125 mls/hr Documented by: Vancomycin HCl 750 mg/ Sodium (Chloride) 250 mls @ 166.667 mls/hr IV Q12H [facility] Vancomycin HCl 750 mg/ Sodium (Chloride) 250 mls @ 166.667 mls/hr IV Q12H [facility] Last Admin: 07/31/20 08:52 Dose: 166.667 mls/hr Documented by: Piperacillin Sod/Tazobactam (Sod 3.375 gm/ Sodium Chloride) 100 mls @ 200 mls/hr IV Q6H [facility] Last Admin: 07/31/20 13:29 Dose: Not Given Documented by: Insulin Human Lispro (Humalog) 10 unit SUBCUT ONETIME ONE Stop: 07/30/20 20:01 Last Admin: 07/30/20 20:10 Dose: 10 unit Documented by: Insulin Human Lispro (Humalog) 0 unit SUBCUT TIDAC [facility]; Protocol Lidocaine HCl (Xylocaine-Mpf 1%) 30 ml INJECT ONETIME ONE Stop: 07/30/20 18:41 Last Admin: 07/30/20 19:15 Dose: 30 ml Documented by: Lidocaine HCl (Xylocaine-Mpf 1%) Confirm Administered Dose 30 ml .ROUTE .STK-MED ONE Stop: 07/30/20 18:42 Last Admin: 07/30/20 19:34 Dose: Not Given Documented by: Vancomycin HCl (Pharmacy To Dose - Vancomycin) 1 dose .XX ASDIRECTED [facility] - Exam General: Reports: Alert, Oriented Lungs: Reports: Clear to Auscultation, Normal Respiratory Effort Cardiovascular: Reports: Regular Rate, Regular Rhythm GI/Abdominal Exam: Normal Bowel Sounds, Soft, Non-Tender Skin: Reports: Warm, Other (abscess is drained, no drainage)
[2020-08-01 07:55] VITALS: BP 115/73; PULSE 95
[2020-08-01] MEDS: Insulin Lispro 100 Units/ML 3 ML Vial SUBCUT SCH ×2 (09:10→12:35)
[2020-08-01] MEDS: Enoxaparin 40 MG/0.4 ML Syringe SUBCUT SCH (10:10)
[2020-08-01] MEDS: Sulfamethoxazole/Trimethoprim 800-160 MG Tab PO SCH (10:10)
[2020-08-01] MEDS: Acetaminophen/HYDROcodone 325-10 MG Tab PO PRN (11:00)
== END 2020-08-01 13:21 | disposition home or self-care (01) | DRG 872 ==
LOC: DL.ED 18:39 → DL.MS 19:52
PROVIDERS: ADMIT Internal Medicine; ATTEND Internal Medicine
DX: A41.9 Sepsis, unspecified organism (principal); E87.1 Hypo-osmolality and hyponatremia; L03.811 Cellulitis of head [any part, except face]; L02.811 Cutaneous abscess of head [any part, except face]; E11.65 Type 2 diabetes mellitus with hyperglycemia; E11.21 Type 2 diabetes mellitus with diabetic nephropathy; F17.200 Nicotine dependence, unspecified, uncomplicated; M19.90 Unspecified osteoarthritis, unspecified site; Z20.828 Contact with and (suspected) exposure to other viral communicable diseases; Z88.6 Allergy status to analgesic agent
CPT/HCPCS: 10061; 36415; 80048; 80053; 80202; 81001; 82009; 82962; 83605; 85025; 86140; 87040; 87070; 87077; 87186; 99284-25; A9270-GY; J1200; J1650; J1815-GY; J2001; J2543; J3370; J3480; J7050; U0002

== ENCOUNTER 2021-01-13 22:51 | Emergency (ER) | payer MEDICAID | END 2021-01-14 00:09 | disposition left against medical advice (07) | LOC: DL.ED 22:51 | DX: R63.3 Feeding difficulties (principal); Z53.21 Procedure and treatment not carried out due to patient leaving prior to being seen by health care provider ==

== ENCOUNTER 2021-02-27 19:37 | Emergency (ER) | payer MEDICAID ==
[2021-02-27] MEDS ORDERED: Bacitracin Oint 1 GM U/D Packet TOP ONE (19:59)
--- NOTE | 2021-02-27 20:03 | EDM.PDOC ---
ED HPI GENERAL MEDICAL PROBLEM - General Chief Complaint: Lower Extremity Injury/Pain Stated Complaint: TWO SORES ON HER LEFT CHRISTIANSON, NOW THERE DEEP Time Seen by Provider: 02/27/21 19:55 Source of Information: Reports: Patient History Limitations: Reports: No Limitations - History of Present Illness INITIAL COMMENTS - FREE TEXT/NARRATIVE: This 41 yo female patient reports to the ED due to to enlarging sores on her left anterior christianson. The patient reports she has noticed the areas getting worse over the past 4 days. The patient has not been seen in a clinic for these wounds. The patient reports she has been using Peroxide to clean the wounds and also using Neosporin over the areas. The patient reports she is not allergic to any medications other than aspirin and ibuprofen. The patient does have a history of diabetes. Onset Date: 02/23/21 Duration: Constant, Getting Worse Location: Reports: Lower Extremity, Left Quality: Reports: Ache, Dull Severity: Mild Improves with: Reports: None Worsens with: Reports: None Context: Reports: Other Associated Symptoms: Reports: No Other Symptoms Left Leg Pain Score (Numeric/FACES): 5 - Related Data Allergies Allergy/AdvReac Type Severity Reaction Status Date / Time aspirin Allergy Rash Verified 02/27/21 19:57 ibuprofen [From Motrin] Allergy Swelling Verified 02/27/21 19:57 Home Meds: Home Meds Insulin Glarg,Human.Rec.Analog [Lantus] 10 unit SUBCUT BEDTIME #1 pen 08/01/20 [Rx] Past Medical History Other HEENT History: dental removal of abcessed teeth Cardiovascular History: Reports: None Respiratory History: Reports: None Gastrointestinal History: Reports: None Genitourinary History: Reports: Diabetic Nephropathy 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 hip Neurological History: Reports: None Psychiatric History: Reports: Addiction Endocrine/Metabolic History: Reports: Diabetes, Type I Hematologic History: Reports: None Immunologic History: Reports: None Oncologic (Cancer) History: Reports: None Dermatologic History: Reports: None - Infectious Disease History Infectious Disease History: Reports: None - Past Surgical History Female Surgical History: Reports: Tubal Ligation Social & Family History - Family History Family Medical History: No Pertinent Family History - Caffeine Use Caffeine Use: Reports: Soda Other Caffeine Use: 2 liter Review of Systems - Review of Systems Review Of Systems: Comprehensive ROS is negative, except as noted in HPI. ED EXAM, GENERAL - Physical Exam Exam: See Below Exam Limited By: No Limitations General Appearance: Alert, WD/WN, Anxious, Mild Distress, Thin Eye Exam: Bilateral Eye: EOMI, Normal Inspection, PERRL Ears: Normal External Exam, Normal Canal, Hearing Grossly Normal, Normal TMs Nose: Normal Inspection, Normal Mucosa, No Blood Throat/Mouth: Normal Inspection, Normal Lips, Normal Teeth, Normal Gums, Normal Oropharynx, Normal Voice, No Airway Compromise Head: Atraumatic, Normocephalic Neck: Normal Inspection, Supple, Non-Tender, Full Range of Motion Respiratory/Chest: No Respiratory Distress, Lungs Clear, Normal Breath Sounds, No Accessory Muscle Use, Chest Non-Tender Cardiovascular: Normal Peripheral Pulses, Regular Rate, Rhythm, No Edema, No Gallop, No JVD, No Murmur, No Rub GI/Abdominal: Normal Bowel Sounds, Soft, Non-Tender, No Organomegaly, No D istention, No Abnormal Bruit, No Mass (Female) Exam: Deferred Rectal (Female) Exam: Deferred Extremities: Leg Pain (over areas) Neurological: Alert, Oriented, CN II-XII Intact, Normal Cognition, Normal Gait, Normal Reflexes, No Motor/Sensory Deficits Psychiatric: Normal Affect, Normal Mood Skin Exam: Warm, Dry, Erythema (left anterior christianson erythema with no current drainage) Lymphatic: No Adenopathy Course - Vital Signs Last Recorded V/S: Last Vital Signs Temp 97.5 F 02/27/21 19:47 Pulse 129 H 02/27/21 20:13 Resp 18 02/27/21 20:13 BP 127/78 02/27/21 20:13 Pulse Ox 98 02/27/21 20:13 - Orders/Labs/Meds Orders: Active Orders 24 hr Category Date Time Status CULTURE BLOOD [BC] Stat Lab 02/27/21 20:00 Results Labs: Laboratory Tests 02/27/21 02/27/21 02/27/21 Range/Units 20:00 20:00 20:00 WBC 11.2 H (5.0-10.0) 10^3/uL RBC 5.64 H (4.2-5.4) 10^6/uL Hgb 11.5 L D (12.0-16.0) g/dL Hct 36.9 L (37.0-47.0) % MCV 65.4 L (80-100) fL MCH 20.4 L (27.0-34.0) pg MCHC 31.2 L (33.0-35.0) g/dL Plt Count 382 (150-450) 10^3/uL Neut % (Auto) 75.7 H (42.2-75.2) % Lymph % (Auto) 15.4 L (20.5-50.1) % [place] % (Auto) 8.2 H (2-8) % Eos % (Auto) 0.4 L (1.0-3.0) % Baso % (Auto) 0.3 (0.0-1.0) % Sodium 134 L (136-145) mmol/L Potassium 3.8 (3.5-5.1) mmol/L Chloride 98 (98-107) mmol/L Carbon Dioxide 25 (21-32) mmol/L Anion Gap 14.8 H (7-13) mEq/L BUN 11 (7-18) mg/dL Creatinine 0.82 (0.55-1.02) mg/dL Est Cr Clr Drug Dosing 61.42 mL/min Estimated GFR (MDRD) > 60 BUN/Creatinine Ratio 13.4 (No establ ref range) Glucose 326 H (70-99) mg/dL POC Glucose (70-99) mg/dL Lactic Acid 1.2 (0.4-2.0) mmol/L Calcium 8.5 (8.5-10.1) mg/dL Total Bilirubin 0.3 (0.2-1.0) mg/dL AST 16 (15-37) U/L ALT 18 (14-59) U/L Alkaline Phosphatase 195 H (46-116) U/L Total Protein 7.4 (6.4-8.2) g/dL Albumin 2.8 L (3.4-5.0) g/dL Globulin 4.6 Albumin/Globulin Ratio 0.61 06/11/21 Range/Units 20:01 WBC (5.0-10.0) 10^3/uL RBC (4.2-5.4) 10^6/uL Hgb (12.0-16.0) g/dL Hct (37.0-47.0) % MCV (80-100) fL MCH (27.0-34.0) pg MCHC (33.0-35.0) g/dL Plt Count (150-450) 10^3/uL Neut % (Auto) (42.2-75.2) % Lymph % (Auto) (20.5-50.1) % [place] % (Auto) (2-8) % Eos % (Auto) (1.0-3.0) % Baso % (Auto) (0.0-1.0) % Sodium (136-145) mmol/L Potassium (3.5-5.1) mmol/L Chloride (98-107) mmol/L Carbon Dioxide (21-32) mmol/L Anion Gap (7-13) mEq/L BUN (7-18) mg/dL Creatinine (0.55-1.02) mg/dL Est Cr Clr Drug Dosing mL/min Estimated GFR (MDRD) BUN/Creatinine Ratio (No establ ref range) Glucose (70-99) mg/dL POC Glucose 328 H (70-99) mg/dL Lactic Acid (0.4-2.0) mmol/L Calcium (8.5-10.1) mg/dL Total Bilirubin (0.2-1.0) mg/dL AST (15-37) U/L ALT (14-59) U/L Alkaline Phosphatase (46-116) U/L Total Protein (6.4-8.2) g/dL Albumin (3.4-5.0) g/dL Globulin Albumin/Globulin Ratio Meds: Medications Discontinued Medications Generic Name Dose Route Start Last Admin Trade Name Linoq PRN Reason Stop Dose Admin Bacitracin 1 dose 02/27/21 19:59 02/27/21 20:18 Bacitracin Oint 1 Gm U/D Packet TOP 02/27/21 20:00 1 dose ONETIME ONE Administration Clindamycin HCl 300 mg 02/27/21 21:22 Clindamycin Hcl 150 Mg Cap PO 02/27/21 21:23 ONETIME ONE - Re-Assessments/Exams Free Text/Narrative Re-Assessment/Exam: 02/27/21 21:24 Went to the patient's room to advise her of the lab results, but the patient was not in the room. Nursing staff looked for patient, but could not locate the patient. 02/27/21 21:49 Nursing staff reported they found the patient and brought her back to the exam room. When I went to the room to advised the patient of her results and treatments, the patient was not present. Departure - Departure Time of Disposition: 22:11 Disposition: Eloped 07 Condition: Poor Clinical Impression: Cellulitis and abscess of left leg - Discharge Information *PRESCRIPTION DRUG MONITORING PROGRAM REVIEWED*: Not Applicable *COPY OF PRESCRIPTION DRUG MONITORING REPORT IN PATIENT ANDRÉS: Not Applicable Forms: ED Department Discharge Care Plan Goals: The patient left prior to treatment. Sepsis Event Note (ED) - Focused Exam Vital Signs: Vital Signs Temp Pulse Resp BP Pulse Ox 02/27/21 20:13 129 H 18 127/78 98 02/27/21 19:47 97.5 F 133 H 18 139/87 98 - My Orders Last 24 Hours: My Active Orders 02/27/21 20:00 CULTURE BLOOD [BC] Stat - Assessment/Plan Last 24 Hours: My Active Orders 02/27/21 20:00 CULTURE BLOOD [BC] Stat
[2021-02-27 20:13] VITALS: BP 127/78; PULSE 129
[2021-02-27 20:40] LABS: ANION GAP 14.8 mEq/L (7-13); CHLORIDE,CL 98 mmol/L (98-107); SODIUM,NA 134 mmol/L (136-145)
[2021-02-27] MEDS ORDERED: Clindamycin HCl 150 MG Cap PO ONE (21:22)
== END 2021-02-27 21:46 | disposition left against medical advice (07) ==
LOC: DL.ED 19:37
DX: L03.116 Cellulitis of left lower limb (principal); L02.416 Cutaneous abscess of left lower limb; E10.21 Type 1 diabetes mellitus with diabetic nephropathy; Z88.6 Allergy status to analgesic agent
CPT/HCPCS: 36415; 80053; 82947; 83605; 85025; 87040; 99283

== ENCOUNTER 2021-06-06 12:29 | Emergency (ER) | payer MEDICAID ==
--- NOTE | 2021-06-06 13:28 | EDM.PDOC ---
"<Ирина Atkins - Last Filed: 06/06/21 19:44> ED HPI GENERAL MEDICAL PROBLEM - General Chief Complaint: General Time Seen by Provider: 06/06/21 13:16 - Related Data Allergies Allergy/AdvReac Type Severity Reaction Status Date / Time aspirin Allergy Rash Verified 06/06/21 12:30 ibuprofen [From Motrin] Allergy Swelling Verified 06/06/21 12:30 Home Meds: Home Meds Insulin Glarg,Human.Rec.Analog [Lantus] 10 unit SUBCUT BEDTIME #1 pen 08/01/20 [Rx] Course - Re-Assessments/Exams Free Text/Narrative Re-Assessment/Exam: US did not show any stone. Pt states she is ready to go home. 06/06/21 19:44 Departure - Departure Time of Disposition: 19:44 Disposition: Home, Self-Care 01 Clinical Impression: Elevated liver enzymes, Common bile duct dilatation, Microcytic hypochromic anemia, Hyponatremia Nausea & vomiting Qualifiers: Vomiting type: unspecified Vomiting Intractability: non-intractable Qualified Code(s): R11.2 - Nausea with vomiting, unspecified - Discharge Information Instructions: Hyponatremia Referrals: PCP,None [Primary Care Provider] - Forms: ED Department Discharge Additional Instructions: Follow up with your primary care provider in 3-5 days <Stefany Santizoe - Last Filed: 06/08/21 09:10> ED HPI GENERAL MEDICAL PROBLEM - General Source of Information: Reports: Patient, RN, RN Notes Reviewed History Limitations: Reports: No Limitations - History of Present Illness INITIAL COMMENTS - FREE TEXT/NARRATIVE: Jocelyne is a 41 y/o female who presents to the ED via [facility] with complaints of subjective fever, increased lethargy, shortness of breath, and loss of taste/smell. The patient reports her symptoms began approximately four days ago and have progressed in that time. Additionally, she notes headache, non-productive cough, nausea, and one bout of emesis that began yesterday. She has taken one dose of Melatonin for headache, which provided no alleviation of symptoms. She does not have a thermometer at home, so she us unaware of her TMax. The patient denies shaking chills, vision changes, dizziness, chest pain/palpitations, abdominal pain, diarrhea, or dysuria. The patient states she is not vaccinated against COVID. She attest to smoking 1/2 pack of cigarettes per day and marijuana last week; she denies alcohol use. 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 hip Neurological History: Reports: None Psychiatric History: Reports: Addiction Endocrine/Metabolic History: Reports: Diabetes, Type II Hematologic History: Reports: None Immunologic History: Reports: None Oncologic (Cancer) History: Reports: None Dermatologic History: Reports: None - Infectious Disease History Infectious Disease History: Reports: None - Past Surgical History Head Surgeries/Procedures: Reports: None HEENT Surgical History: Reports: None Other HEENT Surgeries/Procedures: had upper left wisdom tooth cut out Fri. February 14 GI Surgical History: Reports: Cholecystectomy Female Surgical History: Reports: Tubal Ligation Other Female Surgeries/Procedures: fibroid removed Endocrine Surgical History: Reports: None Musculoskeletal Surgical History: Reports: None Social & Family History - Family History Family Medical History: No Pertinent Family History - Tobacco Use Tobacco Use Status *Q: Unknown Ever Used Tobacco - Caffeine Use Caffeine Use: Reports: Coffee Other Caffeine Use: 2 liter - Recreational Drug Use Recreational Drug Use: Yes ED ROS GENERAL - Review of Systems Review Of Systems: Comprehensive ROS is negative, except as noted in HPI. ED EXAM, GENERAL - Physical Exam Exam: See Below Exam Limited By: No Limitations General Appearance: Alert, Anxious (Tearful) Eye Exam: Bilateral Eye: EOMI, Normal Inspection, PERRL (3mm) Ears: Normal External Exam, Normal Canal, Hearing Grossly Normal, Normal TMs Ear Exam: Bilateral Ear: Auricle Normal, Canal Normal, TM normal Nose: Normal Inspection, Normal Mucosa, No Blood Throat/Mouth: Normal Voice, No Airway Compromise. No: Normal Oropharynx (Dry mucous membranes) Head: Atraumatic, Normocephalic Neck: Normal Inspection, Supple, Non-Tender, Full Range of Motion. No: Lymphadenopathy (L), Lymphadenopathy (R) Respiratory/Chest: No Respiratory Distress, Lungs Clear, Normal Breath Sounds, No Accessory Muscle Use, Chest Non-Tender. No: Crackles, Rales, Rhonchi, Wheezing, Stridor, Retractions Cardiovascular: Normal Peripheral Pulses, Regular Rate, Rhythm, No Edema, No Gallop, No JVD, No Murmur, No Rub, Tachycardia Peripheral Pulses: 2+: Radial (L), Radial (R) GI/Abdominal: Normal Bowel Sounds, Soft, Non-Tender, No Distention, No Abnormal Bruit, No Mass, Pelvis Stable. No: Guarding, Rigid, Rebound (Female) Exam: Deferred Rectal (Female) Exam: Deferred Back Exam: Normal Inspection, Full Range of Motion Extremities: Normal Inspection, Normal Range of Motion, Non-Tender, No Pedal Edema, Normal Capillary Refill Neurological: Alert, Oriented, CN II-XII Intact, Normal Cognition, Normal Gait, No Motor/Sensory Deficits Psychiatric: Normal Affect, Normal Mood Skin Exam: Warm, Dry, Intact, Normal Color, No Rash. No: Cyanosis, Jaundice, Mottled, Pallor Lymphatic: No Adenopathy Course - Vital Signs Last Recorded V/S: Last Vital Signs Temp 97.9 F 06/06/21 19:31 Pulse 112 H 06/06/21 19:31 Resp 18 06/06/21 19:31 BP 102/67 06/06/21 19:31 Pulse Ox 98 06/06/21 19:31 - Orders/Labs/Meds Labs: Laboratory Tests 06/06/21 06/06/21 06/06/21 Range/Units 12:20 13:43 13:43 WBC 4.6 L (5.0-10.0) 10^3/uL RBC 5.41 H (4.2-5.4) 10^6/uL Hgb 11.8 L (12.0-16.0) g/dL Hct 35.9 L (37.0-47.0) % MCV 66.4 L (80-100) fL MCH 21.8 L (27.0-34.0) pg MCHC 32.9 L (33.0-35.0) g/dL Plt Count 189 D (150-450) 10^3/uL Neut % (Auto) 66.4 (42.2-75.2) % Lymph % (Auto) 19.6 L (20.5-50.1) % [place] % (Auto) 8.4 H (2-8) % Eos % (Auto) 4.5 H (1.0-3.0) % Baso % (Auto) 1.1 H (0.0-1.0) % Sodium 128 L (136-145) mmol/L Potassium 3.5 (3.5-5.1) mmol/L Chloride 92 L (98-107) mmol/L Carbon Dioxide 27 (21-32) mmol/L Anion Gap 12.5 (7-13) mEq/L BUN 9 (7-18) mg/dL Creatinine 0.66 (0.55-1.02) mg/dL Est Cr Clr Drug Dosing 78.72 mL/min Estimated GFR (MDRD) > 60 BUN/Creatinine Ratio 13.6 (No establ ref range) Glucose 305 H (70-99) mg/dL Calcium 9.1 (8.5-10.1) mg/dL Magnesium 1.8 (1.8-2.4) mg/dL Total Bilirubin 2.4 H (0.2-1.0) mg/dL AST 296 H (15-37) U/L ALT 293 H (14-59) U/L Alkaline Phosphatase 421 H (46-116) U/L C-Reactive Protein 4.2 H (0.0-0.9) mg/dL Total Protein 7.3 (6.4-8.2) g/dL Albumin 2.7 L (3.4-5.0) g/dL Globulin 4.6 Albumin/Globulin Ratio 0.59 Amylase (25-115) U/L Lipase (73-393) U/L SARS-CoV-2 RNA (ROEL) Negative (NEGATIVE) 06/06/21 Range/Units 13:43 WBC (5.0-10.0) 10^3/uL RBC (4.2-5.4) 10^6/uL Hgb (12.0-16.0) g/dL Hct (37.0-47.0) % MCV (80-100) fL MCH (27.0-34.0) pg MCHC (33.0-35.0) g/dL Plt Count (150-450) 10^3/uL Neut % (Auto) (42.2-75.2) % Lymph % (Auto) (20.5-50.1) % [place] % (Auto) (2-8) % Eos % (Auto) (1.0-3.0) % Baso % (Auto) (0.0-1.0) % Sodium (136-145) mmol/L Potassium (3.5-5.1) mmol/L Chloride (98-107) mmol/L Carbon Dioxide (21-32) mmol/L Anion Gap (7-13) mEq/L BUN (7-18) mg/dL Creatinine (0.55-1.02) mg/dL Est Cr Clr Drug Dosing mL/min Estimated GFR (MDRD) BUN/Creatinine Ratio (No establ ref range) Glucose (70-99) mg/dL Calcium (8.5-10.1) mg/dL Magnesium (1.8-2.4) mg/dL Total Bilirubin (0.2-1.0) mg/dL AST (15-37) U/L ALT (14-59) U/L Alkaline Phosphatase (46-116) U/L C-Reactive Protein (0.0-0.9) mg/dL Total Protein (6.4-8.2) g/dL Albumin (3.4-5.0) g/dL Globulin Albumin/Globulin Ratio Amylase 21 L (25-115) U/L Lipase 99 (73-393) U/L SARS-CoV-2 RNA (ROEL) (NEGATIVE) Meds: Medications Discontinued Medications Generic Name Dose Route Start Last Admin Trade Name Freq PRN Reason Stop Dose Admin Acetaminophen 650 mg 06/06/21 19:02 06/06/21 19:29 Acetaminophen 325 Mg Tab PO 06/06/21 19:03 650 mg NOW ONE Administration Sodium Chloride 1,000 mls @ 999 mls/hr 06/06/21 14:00 06/06/21 15:18 Normal Saline IV 06/06/21 15:00 Infused .BOLUS ONE Infusion Iopamidol 100 ml 06/06/21 15:02 06/06/21 15:18 Iopamidol 612 Mg/Ml 100 Ml Bottle IVPUSH 06/06/21 15:03 100 ml ONETIME ONE Administration - Radiology Interpretation Free Text/Narrative:: [facility] Final Radiology Report Call: [phone] assistance Online chat: [email or web address] Name: JOCELYNE SCHMITZ Age: 41Years F Date: 06/06/2021 SSN: -- : [id number] Study: CT ABDOMEN PELVIS W CONT Requesting Physician: Stefany Santizo Images: [id number] Addl Studies: Provided Clinical History: Nausea/Vomiting; Elevated LFTs; Malaise Contrast: With Contrast Medium: [id number] Contrast Amount: 75 mL Contrast Method: Intravenous (IV) Page 1 of 2 PROCEDURE INFORMATION: Exam: CT Abdomen And Pelvis With Contrast Exam date and time: 06/06/2021 3:33 PM Age: 41 years old Clinical indication: Nausea and vomiting; Patient HX: Liver enzymes significantl y elevated since 3 months ago; Additional info: Nausea/vomiting; Elevated lfts; Malaise TECHNIQUE: Imaging protocol: Computed tomography of the abdomen and pelvis with contrast. Radiation optimization: All CT scans at this facility use at least one of these dose optimization techniques: automated exposure control; mA and/or kV adjustment per patient size (includes targeted exams where dose is matched to clinical indication); or iterative reconstruction. Contrast material: [id number]; Contrast volume: 75 ml; Contrast route: INTRAVENOUS (IV); COMPARISON: No relevant prior studies available. FINDINGS: Lungs: Unremarkable.No mass or nodule. Liver: Normal. No mass. Gallbladder and bile ducts: Cholecystectomy. Common bile duct distended to 1.4 cm. Suggestion of small density in the distal common duct possibly representing a common duct stone. (See image 68; series 2). Pancreas: Normal. No ductal dilation. Spleen: Normal. No splenomegaly. Adrenal glands: Normal. No mass. Kidneys and ureters: Normal. No hydronephrosis. Stomach and bowel: Unremarkable. No obstruction. No mucosal thickening. Appendix: No evidence of appendicitis. JOCELYNE SCHMITZ | Final Radiology Report CONFIDENTIALITY STATEMENT This report is intended only for use by the referring physician, and only in accordance with law. If you received this in error, call [phone]. Page 2 of 2 Intraperitoneal space: Unremarkable. No free air. No significant fluid collection. Vasculature: Unremarkable. No abdominal aortic aneurysm. Lymph nodes: Unremarkable. No enlarged lymph nodes. Urinary bladder: Unremarkable as visualized. Reproductive: Unremarkable as visualized. Bones/joints: Unremarkable. No acute fracture. Soft tissues: Unremarkable. IMPRESSION: 1. Status post cholecystectomy. Distended common duct, possible choledocholithiasis. Recommend sonography to exclude common duct stone. 2. No other significant abdominopelvic findings identified. Thank you for allowing us to participate in the care of your patient. Dictated and Authenticated by: Piter Kim MD 06/06/2021 4:04 PM Central Time ([place] & [place]) [facility] Final Radiology Report Call: [phone] assistance Online chat: [email or web address] Name: JOCELYNE SCHMITZ Age: 41Years F Date: 06/06/2021 SSN: -- : 1980 Study: US ABDOMEN LTD Requesting Physician: Stefany Santizo Images: 21 Addl Studies: Provided Clinical History: r/o CBD stone Contrast: Without Contrast Medium: Contrast Amount: Contrast Method: CONFIDENTIALITY STATEMENT This report is intended only for use by the referring physician, and only in accordance with law. If you received this in error, call [phone]. Page 1 of 1 PROCEDURE INFORMATION: Exam: US Abdomen, Limited; Right Upper Quadrant Exam date and time: 06/06/2021 6:39 PM Age: 41 years old Clinical indication: Nausea and vomiting; Abdominal pain; Acute; Prior surgery; Surgery date: 6+ months; Surgery type: Cholecystectomy; Additional info: R/O cbd stone TECHNIQUE: Imaging protocol: US abdomen. Real time ultrasound with image documentation. Limited exam focused on the right upper quadrant. COMPARISON: CT Abdomen Pelvis w Cont 06/06/2021 3:33 PM FINDINGS: Liver: Normal. No masses. Gallbladder: Surgically absent. Common bile duct: Normal. No stones. No dilation. Pancreas: Visualized pancreas is unremarkable. Right kidney: Normal. No mass. No hydronephrosis. IMPRESSION: No acute findings. Thank you for allowing us to participate in the care of your patient. Dictated and Authenticated by: Piter Kim MD 06/06/2021 7:30 PM Central Time ([place] & [place]) - Re-Assessments/Exams Free Text/Narrative Re-Assessment/Exam: 06/06/21 COVID sent. 1L NS bolus initiated. CT abdomen/pelvis obtained given significant increase in liver enzymes and bilirubin in last three months. Findings of examination and lab work reviewed with patient, she consents to scan. CT reveals CBD dilation as well as possible stone. Recommending US to r/o choledocholithiasis. Findings of CT scan reviewed with patient, she consents to US. Care of patient transferred to Dr. Atkins at 1900. Departure - Departure Time of Disposition: 17:59 Condition: Good - Discharge Information *PRESCRIPTION DRUG MONITORING PROGRAM REVIEWED*: Not Applicable *COPY OF PRESCRIPTION DRUG MONITORING REPORT IN PATIENT ANDRÉS: Not Applicable"
[2021-06-06] MEDS: Sodium Chloride 0.9% 1,000 ML IV ONE (14:06)
[2021-06-06 14:09] LABS: ANION GAP 12.5 mEq/L (7-13); CHLORIDE,CL 92 mmol/L (98-107); SODIUM,NA 128 mmol/L (136-145)
[2021-06-06] MEDS: Iopamidol 612 MG/ML 100 ML Bottle IVPUSH ONE (15:18)
--- NOTE | 2021-06-06 16:04 | CT ---
PROCEDURE INFORMATION: Exam: CT Abdomen And Pelvis With Contrast Exam date and time: 06/06/2021 3:33 PM Age: 41 years old Clinical indication: Nausea and vomiting; Patient HX: Liver enzymes significantly elevated since 3 months ago; Additional info: Nausea/vomiting; Elevated lfts; Malaise TECHNIQUE: Imaging protocol: Computed tomography of the abdomen and pelvis with contrast. Radiation optimization: All CT scans at this facility use at least one of these dose optimization techniques: automated exposure control; mA and/or kV adjustment per patient size (includes targeted exams where dose is matched to clinical indication); or iterative reconstruction. Contrast material: [id number]; Contrast volume: 75 ml; Contrast route: INTRAVENOUS (IV); COMPARISON: No relevant prior studies available. FINDINGS: Lungs: Unremarkable.No mass or nodule. Liver: Normal. No mass. Gallbladder and bile ducts: Cholecystectomy. Common bile duct distended to 1.4 cm. Suggestion of small density in the distal common duct possibly representing a common duct stone. (See image 68; series 2). Pancreas: Normal. No ductal dilation. Spleen: Normal. No splenomegaly. Adrenal glands: Normal. No mass. Kidneys and ureters: Normal. No hydronephrosis. Stomach and bowel: Unremarkable. No obstruction. No mucosal thickening. Appendix: No evidence of appendicitis. Intraperitoneal space: Unremarkable. No free air. No significant fluid collection. Vasculature: Unremarkable. No abdominal aortic aneurysm. Lymph nodes: Unremarkable. No enlarged lymph nodes. Urinary bladder: Unremarkable as visualized. Reproductive: Unremarkable as visualized. Bones/joints: Unremarkable. No acute fracture. Soft tissues: Unremarkable. IMPRESSION: 1. Status post cholecystectomy. Distended common duct, possible choledocholithiasis. Recommend sonography to exclude common duct stone. 2. No other significant abdominopelvic findings identified.
[2021-06-06] MEDS: Acetaminophen 325 MG Tab PO ONE (19:29)
[2021-06-06 19:32] VITALS: BP 102/67; PULSE 112
--- NOTE | 2021-06-07 07:18 | US ---
PROCEDURE INFORMATION: Exam: US Abdomen, Limited; Right Upper Quadrant Exam date and time: 06/06/2021 6:39 PM Age: 41 years old Clinical indication: Nausea and vomiting; Abdominal pain; Acute; Prior surgery; Surgery date: 6+ months; Surgery type: Cholecystectomy; Additional info: R/O cbd stone TECHNIQUE: Imaging protocol: US abdomen. Real time ultrasound with image documentation. Limited exam focused on the right upper quadrant. COMPARISON: CT Abdomen Pelvis w Cont 06/06/2021 3:33 PM FINDINGS: Liver: Normal. No masses. Gallbladder: Surgically absent. Common bile duct: Normal. No stones. No dilation. Pancreas: Visualized pancreas is unremarkable. Right kidney: Normal. No mass. No hydronephrosis. IMPRESSION: No acute findings.
== END 2021-06-06 20:01 | disposition home or self-care (01) ==
LOC: DL.ED 12:29
DX: D50.9 Iron deficiency anemia, unspecified (principal); R11.2 Nausea with vomiting, unspecified; E87.1 Hypo-osmolality and hyponatremia; R74.8 Abnormal levels of other serum enzymes; F45.8 Other somatoform disorders; Z20.822 Contact with and (suspected) exposure to COVID-19
CPT/HCPCS: 36415; 74177; 76705; 80053; 82150; 83690; 83735; 85025; 86140; 87635; 99285; A9270; J7030; Q9967; U0002

== ENCOUNTER 2025-03-12 09:17 | Inpatient (IN) | payer SELFPAY ==
[2025-03-12] MEDS ORDERED: Sodium Chloride 0.9% 10 ML Syringe FLUSH PRN (09:42)
[2025-03-12] MEDS ORDERED: Naloxone 2 MG/2 ML Syringe IVPUSH PRN (09:47)
[2025-03-12 10:08] LABS: BASOPHILS PERCENT AUTO 0.3 % (0.0-1.0); EOSINOPHILS PERCENT AUTO 0.3 % (1.0-3.0); HEMATOCRIT 36.2 % (37.0-47.0); HEMOGLOBIN 12.2 g/dL (12.0-16.0); LYMPHOCYTES PERCENT AUTO 12.1 % (20.5-50.1); MEAN CORPUSCULAR HEMOGLOBIN 26.3 pg (27.0-34.0); MEAN CORPUSCULAR HGB CONC 33.7 g/dL (33.0-35.0); MONOCYTES PERCENT AUTO 7.3 % (2-8); PLATELET COUNT,PLT 280 10^3/uL (150-450); RED BLOOD CELL COUNT 4.64 10^6/uL (4.2-5.4); WHITE BLOOD CELL COUNT,WBC 12.6 10^3/uL (5.0-10.0)
[2025-03-12] MEDS: cefTRIAXone 1 GM in Sodium Chloride 0.9% 100 ML IV ONE (10:16)
[2025-03-12] MEDS: WATER IV ONE (10:16)
[2025-03-12] MEDS: DEXTROSE 5% IV ONE (10:16)
[2025-03-12] MEDS: VANCOMYCIN IV ONE (10:16)
[2025-03-12] MEDS: Lactated Ringers 1,000 ML IV ONE (10:17)
[2025-03-12] MEDS: HYDROmorphone 0.5 MG/0.5 ML Syringe IVPUSH ONE (10:17)
[2025-03-12 10:25] LABS: INR 0.9 (0.9-1.2); PROTHROMBIN TIME 9.8 SEC (9.0-12.0)
[2025-03-12 10:28] LABS: ALANINE AMINOTRANSFERASE,ALT 13 U/L (14-59); ALBUMIN 2.3 g/dL (3.4-5.0); ALKALINE PHOSPHATASE 188 U/L (46-116); ANION GAP 9.8 mEq/L (7-13); ASPARTATE AMNIOTRANSFERASE,AST 8 U/L (15-37); BILIRUBIN TOTAL 0.2 mg/dL (0.2-1.0); BLOOD UREA NITROGEN,BUN 6 mg/dL (7-18); BUN/CREATININE RATIO 8.1 (No establ ref range); CALCIUM 9.6 mg/dL (8.5-10.1); CARBON DIOXIDE,CO2 29 mmol/L (21-32); CHLORIDE,CL 98 mmol/L (98-107); CREATININE 0.74 mg/dL (0.55-1.02); POTASSIUM,K 3.8 mmol/L (3.5-5.1); PROTEIN TOTAL,TP 7.1 g/dL (6.4-8.2); SODIUM,NA 133 mmol/L (136-145)
[2025-03-12 10:29] LABS: A/G RATIO 0.48; ESTIMATED GFR 102 mL/min (>=60); GLUCOSE RANDOM 428 mg/dL (70-99)
[2025-03-12 10:31] LABS: LACTIC ACID 1.4 mmol/L (0.4-2.0)
[2025-03-12] MEDS: Iopamidol 612 MG/ML 100 ML Bottle IVPUSH ONE (10:35)
[2025-03-12] MEDS: Lactated Ringers 1,000 ML IV SCH (12:49)
[2025-03-12] MEDS ORDERED: Acetaminophen/HYDROcodone 325-5 MG Tab PO PRN (13:51)
[2025-03-12] MEDS ORDERED: HYDROmorphone 0.5 MG/0.5 ML Syringe IVPUSH PRN (13:51)
[2025-03-12] MEDS ORDERED: Magnesium Hydroxide 400 MG/5 ML Susp 30 ML Cup PO PRN (13:55)
[2025-03-12] MEDS ORDERED: Bisacodyl 10 MG Supp RECTAL PRN (13:55)
[2025-03-12] MEDS ORDERED: Albuterol/Ipratropium 3.0-0.5 MG/3 ML Neb Soln NEB PRN (13:55)
[2025-03-12] MEDS ORDERED: Metoclopramide 10 MG/2 ML SDV IV PRN (13:55)
[2025-03-12] MEDS ORDERED: Zolpidem 5 MG Tab PO PRN (13:55)
[2025-03-12] MEDS ORDERED: Polyethylene Glycol 3350 Powder 17 GM Packet PO PRN (13:55)
[2025-03-12] MEDS: hydrALAZINE 20 MG/ML SDV IVPUSH PRN (14:01)
[2025-03-12] MEDS ORDERED: Melatonin 3 MG Tab PO PRN (14:01)
[2025-03-12] MEDS: HYDROmorphone 1 MG/ML Syringe IVPUSH ONE (14:03)
[2025-03-12 14:06] LABS: HEMOGLOBIN A1C 11.8 % (<5.7)
[2025-03-12] MEDS ORDERED: 50% Dextrose in Water 50 ML Syringe IVPUSH PRN (14:11)
[2025-03-12] MEDS ORDERED: Glucagon,Human Recombinant 1 MG Vial IM PRN (14:11)
[2025-03-12] MEDS: Ampicillin/Sulbactam Na 1.5 GM in Sodium Chloride 0.9% 100 ML IV SCH (14:39)
[2025-03-12] MEDS: Ketorolac 30 MG/ML SDV IVPUSH ONE (14:39)
[2025-03-12] MEDS: Dexamethasone 4 MG/ML SDV IVPUSH ONE (14:40)
[2025-03-12] MEDS: diphenhydrAMINE 50 MG/ML SDV IVPUSH ONE (14:40)
[2025-03-12] MEDS: Famotidine 20 MG/2 ML SDV IVPUSH ONE (14:40)
[2025-03-12] MEDS: Nicotine 21 MG/24 Hr Patch TRDERM SCH (14:58)
[2025-03-12] MEDS: Insulin Lispro 100 Units/ML 3 ML Vial SUBCUT SCH (17:30)
[2025-03-12] MEDS: VANCOmycin 1 GM in Sodium Chloride 0.9% 250 ML IV SCH (22:16)
[2025-03-12] MEDS: oxyCODONE ER 10 MG TAB.ER PO SCH (22:20)
[2025-03-12] MEDS: Saccharomyces Boulardii (Probiotic) 250 MG Cap PO SCH (22:20)
[2025-03-12] MEDS: Insulin Glarg,Human.Rec.Analog 100 Unit/ML 10 ML Vial SUBCUT SCH (22:23)
[2025-03-12] MEDS ORDERED: Insulin NPH HUM/REG Insulin HM 100 UNIT/ML 3 ML Vial SQ ONE (22:34)
[2025-03-12] MEDS: Insulin Regular, Human 100 Units/ML 10 ML Vial SUBCUT ONE (22:46)
[2025-03-13 06:00] LABS: BASOPHILS PERCENT AUTO 0.1 % (0.0-1.0); HEMATOCRIT 32.7 % (37.0-47.0); HEMOGLOBIN 11.4 g/dL (12.0-16.0); LYMPHOCYTES PERCENT AUTO 16.1 % (20.5-50.1); MEAN CORPUSCULAR HEMOGLOBIN 27.2 pg (27.0-34.0); MEAN CORPUSCULAR HGB CONC 34.9 g/dL (33.0-35.0); MONOCYTES PERCENT AUTO 8.7 % (2-8); NEUTROPHILS PERCENT AUTO 75.1 % (42.2-75.2); PLATELET COUNT,PLT 292 10^3/uL (150-450); RED BLOOD CELL COUNT 4.19 10^6/uL (4.2-5.4); WHITE BLOOD CELL COUNT,WBC 14.5 10^3/uL (5.0-10.0)
[2025-03-13 06:19] LABS: ALBUMIN 1.7 g/dL (3.4-5.0); ANION GAP 8.8 mEq/L (7-13); BILIRUBIN TOTAL 0.2 mg/dL (0.2-1.0); BUN/CREATININE RATIO 15.2 (No establ ref range); C-REACTIVE PROTEIN 14.82 ng/dL (<=0.50); CALCIUM 9.2 mg/dL (8.5-10.1); CREATININE 0.66 mg/dL (0.55-1.02); EST CRCL DRUG DOSING (CG) 75.61 mL/min; MAGNESIUM 1.7 mg/dL (1.8-2.4); POTASSIUM,K 3.8 mmol/L (3.5-5.1)
[2025-03-13 06:20] LABS: A/G RATIO 0.4
[2025-03-13] MEDS: Ondansetron 4 MG/2 ML SDV IVPUSH PRN (08:42)
[2025-03-13] MEDS: Magnesium Sulfate 2 GM/50 mL 2 GM in Premix Bag 1 BAG IV ONE (08:50)
[2025-03-13] MEDS: Enoxaparin 40 MG/0.4 ML Syringe SUBCUT SCH (09:02)
[2025-03-13] MEDS: Insulin Glarg,Human.Rec.Analog 100 Unit/ML 10 ML Vial SUBCUT SCH (09:04)
[2025-03-13] MEDS: Acetaminophen/HYDROcodone 325-5 MG Tab PO PRN (12:39)
[2025-03-13] MEDS: Metoclopramide 10 MG/2 ML SDV IV PRN (18:05)
[2025-03-13] MEDS ORDERED: Dextrose 5%-0.9% NaCl 1,000 ML IV SCH (18:30)
[2025-03-13] MEDS: Pantoprazole 40 MG Vial IVPUSH SCH (20:01)
[2025-03-13] MEDS: Ketorolac 30 MG/ML SDV IVPUSH ONE (20:06)
[2025-03-13] MEDS: Check NICOTINE Patch TRDERM SCH (20:11)
[2025-03-13] MEDS: Haloperidol Lactate 5 MG/ML SDV IVPUSH ONE (22:05)
[2025-03-13 22:23] LABS: APPEARANCE,URINE CLOUDY (CLEAR); BILIRUBIN,URINE NEGATIVE (NEGATIVE); COLOR,URINE YELLOW (YELLOW); GLUCOSE,URINE 500 (NEGATIVE); KETONES,URINE NEGATIVE (NEGATIVE); LEUKOCYTE ESTERASE,URINE NEGATIVE (NEGATIVE); NITRITE,URINE NEGATIVE (NEGATIVE); OCCULT BLOOD,URINE TRACE-INTACT (NEGATIVE); PH,URINE 5.5 (5.0-9.0); PROTEIN,URINE >=300 (NEGATIVE)
[2025-03-13 22:26] LABS: AMPHETAMINES,URINE NEGATIVE (NEGATIVE); BARBITURATES,URINE NEGATIVE (NEGATIVE); BENZODIAZEPINE,URINE NEGATIVE (NEGATIVE); MDMA (ECSTASY), URINE NEGATIVE (NEGATIVE); METHADONE,URINE NEGATIVE (NEGATIVE); METHAMPHETAMINES,URINE POSITIVE (NEGATIVE); OPIATES,URINE POSITIVE (NEGATIVE); PHENCYCLIDINE,URINE NEGATIVE (NEGATIVE); TCA,URINE NEGATIVE (NEGATIVE)
[2025-03-13 22:27] LABS: OXYCODONE,URINE POSITIVE (NEGATIVE)
[2025-03-13 22:33] LABS: BACTERIA,URINE MODERATE /HPF (0-FEW/HPF); EPITHELIAL CELLS,URINE MODERATE /HPF (NOT SEEN); MUCUS,URINE FEW /LPF (NOT SEEN); RBC,URINE 0-5 /HPF (0-5); TRICHOMONAS,URINE PRESENT /HPF (NOT SEEN); WBC,URINE 20-30 /HPF (0-5/HPF)
[2025-03-14] MEDS: Scopalamine 1mg/3day Transdermal Patch TOP ONE (00:27)
[2025-03-14] MEDS: Acetaminophen 325 MG Tab PO PRN (05:06)
[2025-03-14] MEDS: Metoprolol Tartrate 5 MG/5 ML SDV IVPUSH PRN (05:09)
[2025-03-14 06:22] LABS: BASOPHILS PERCENT AUTO 0.2 % (0.0-1.0); EOSINOPHILS PERCENT AUTO 0.2 % (1.0-3.0); HEMATOCRIT 31.5 % (37.0-47.0); HEMOGLOBIN 10.4 g/dL (12.0-16.0); LYMPHOCYTES PERCENT AUTO 13.2 % (20.5-50.1); MEAN CORPUSCULAR HEMOGLOBIN 26.3 pg (27.0-34.0); MEAN CORPUSCULAR VOLUME 79.5 fL (80-100); MONOCYTES PERCENT AUTO 10.9 % (2-8); NEUTROPHILS PERCENT AUTO 75.5 % (42.2-75.2); PLATELET COUNT,PLT 291 10^3/uL (150-450); RED BLOOD CELL COUNT 3.96 10^6/uL (4.2-5.4)
[2025-03-14 06:39] LABS: ALBUMIN 1.4 g/dL (3.4-5.0); ANION GAP 9.1 mEq/L (7-13); BILIRUBIN TOTAL 0.3 mg/dL (0.2-1.0); BUN/CREATININE RATIO 11.4 (No establ ref range); CALCIUM 9.1 mg/dL (8.5-10.1); CREATININE 1.23 mg/dL (0.55-1.02); EST CRCL DRUG DOSING (CG) 40.57 mL/min; MAGNESIUM 1.9 mg/dL (1.8-2.4); POTASSIUM,K 4.1 mmol/L (3.5-5.1); PROTEIN TOTAL,TP 5.9 g/dL (6.4-8.2)
[2025-03-14 06:49] LABS: A/G RATIO 0.31
[2025-03-14] MEDS: Sodium Chloride 0.9% 1,000 ML IV SCH (09:08)
[2025-03-14] MEDS: metroNIDAZOLE 250 MG Tab PO SCH (10:30)
[2025-03-14] MEDS ORDERED: Sodium Chloride 0.9% 1,000 ML IV SCH (11:00)
[2025-03-14] MEDS: Mirtazapine 15 MG Tab PO SCH (21:20)
[2025-03-14] MEDS: Melatonin 3 MG Tab PO PRN (21:20)
[2025-03-15] MEDS: Sodium Chloride 0.9% 1,000 ML IV SCH ×2 (00:17→17:29)
[2025-03-15] MEDS: Acetaminophen/oxyCODONE 325-5 MG Tab PO PRN (01:41)
[2025-03-15] MEDS: cloNIDine 0.1 MG Tab PO ONE (05:20)
[2025-03-15] MEDS: LORazepam 0.5 MG Tab PO ONE (05:20)
[2025-03-15 06:14] LABS: BASOPHILS PERCENT AUTO 0.2 % (0.0-1.0); EOSINOPHILS PERCENT AUTO 0.2 % (1.0-3.0); HEMATOCRIT 31.8 % (37.0-47.0); HEMOGLOBIN 10.4 g/dL (12.0-16.0); LYMPHOCYTES PERCENT AUTO 19.8 % (20.5-50.1); MEAN CORPUSCULAR HEMOGLOBIN 25.9 pg (27.0-34.0); MEAN CORPUSCULAR HGB CONC 32.7 g/dL (33.0-35.0); MEAN CORPUSCULAR VOLUME 79.1 fL (80-100); NEUTROPHILS PERCENT AUTO 69.8 % (42.2-75.2); PLATELET COUNT,PLT 287 10^3/uL (150-450); RED BLOOD CELL COUNT 4.02 10^6/uL (4.2-5.4); WHITE BLOOD CELL COUNT,WBC 9.8 10^3/uL (5.0-10.0)
[2025-03-15 06:40] LABS: ALBUMIN 1.3 g/dL (3.4-5.0); ANION GAP 12.7 mEq/L (7-13); BILIRUBIN TOTAL 0.2 mg/dL (0.2-1.0); CALCIUM 8.8 mg/dL (8.5-10.1); CREATININE 1.73 mg/dL (0.55-1.02); EST CRCL DRUG DOSING (CG) 28.85 mL/min; MAGNESIUM 1.9 mg/dL (1.8-2.4); POTASSIUM,K 3.7 mmol/L (3.5-5.1); PROTEIN TOTAL,TP 5.7 g/dL (6.4-8.2)
[2025-03-15 06:41] LABS: A/G RATIO 0.3
[2025-03-15] MEDS: VANCOmycin 1.25 GM in Sodium Chloride 0.9% 250 ML IV SCH (11:31)
[2025-03-15] MEDS: Ampicillin/Sulbactam Na 1.5 GM in Sodium Chloride 0.9% 100 ML IV SCH (17:29)
[2025-03-16 06:26] LABS: BASOPHILS PERCENT AUTO 0.2 % (0.0-1.0); EOSINOPHILS PERCENT AUTO 0.6 % (1.0-3.0); HEMATOCRIT 29.6 % (37.0-47.0); HEMOGLOBIN 9.7 g/dL (12.0-16.0); MEAN CORPUSCULAR HEMOGLOBIN 26.1 pg (27.0-34.0); MEAN CORPUSCULAR HGB CONC 32.8 g/dL (33.0-35.0); MEAN CORPUSCULAR VOLUME 79.6 fL (80-100); MONOCYTES PERCENT AUTO 11.6 % (2-8); NEUTROPHILS PERCENT AUTO 56.6 % (42.2-75.2); PLATELET COUNT,PLT 348 10^3/uL (150-450); RED BLOOD CELL COUNT 3.72 10^6/uL (4.2-5.4); WHITE BLOOD CELL COUNT,WBC 8.2 10^3/uL (5.0-10.0)
[2025-03-16 06:53] LABS: ALBUMIN 1.5 g/dL (3.4-5.0); ANION GAP 11.4 mEq/L (7-13); BILIRUBIN TOTAL 0.2 mg/dL (0.2-1.0); BUN/CREATININE RATIO 12.9 (No establ ref range); CALCIUM 8.2 mg/dL (8.5-10.1); CREATININE 1.4 mg/dL (0.55-1.02); EST CRCL DRUG DOSING (CG) 35.65 mL/min; MAGNESIUM 1.7 mg/dL (1.8-2.4); POTASSIUM,K 3.4 mmol/L (3.5-5.1); PROTEIN TOTAL,TP 5.6 g/dL (6.4-8.2)
[2025-03-16 06:54] LABS: A/G RATIO 0.37
[2025-03-16 08:29] VITALS: BP 129/70; PULSE 94
[2025-03-16] MEDS: Magnesium Sulfate 2 GM/50 mL 2 GM in Premix Bag 1 BAG IV ONE (09:07)
[2025-03-16] MEDS ORDERED: Flumazenil 0.1 MG/ML 5 ML MDV IVPUSH PRN (09:53)
[2025-03-16] MEDS: LORazepam 2 MG/ML SDV IVPUSH STA (10:24)
[2025-03-16] MEDS: Magnesium Oxide 400 MG Tab PO ONE (10:24)
[2025-03-16] MEDS ORDERED: VANCOmycin 1 GM in Sodium Chloride 0.9% 250 ML IV SCH (10:30)
[2025-03-16] MEDS ORDERED: Ampicillin/Sulbactam Na 1.5 GM in Sodium Chloride 0.9% 100 ML IV SCH (12:00)
[2025-03-16] MEDS ORDERED: Magnesium Oxide 400 MG Tab PO SCH (12:00)
[2025-03-17] MEDS ORDERED: Potassium Chloride 10 MEQ Tab.ER PO SCH (08:00)
== END 2025-03-16 12:10 | disposition home or self-care (01) | DRG 871 ==
LOC: DL.ED 09:17 → DL.MS 12:28 → DL.ED 13:15
PROVIDERS: ADMIT Internal Medicine; ATTEND Internal Medicine
DX: A41.9 Sepsis, unspecified organism (principal); E43 Unspecified severe protein-calorie malnutrition; L02.11 Cutaneous abscess of neck; M60.08 Infective myositis, other site; E87.1 Hypo-osmolality and hyponatremia; Z68.1 Body mass index [BMI] 19.9 or less, adult; N17.9 Acute kidney failure, unspecified; F15.13 Other stimulant abuse with withdrawal; E11.21 Type 2 diabetes mellitus with diabetic nephropathy; M19.90 Unspecified osteoarthritis, unspecified site; K02.9 Dental caries, unspecified; F17.210 Nicotine dependence, cigarettes, uncomplicated; I10 Essential (primary) hypertension; E83.52 Hypercalcemia; E11.65 Type 2 diabetes mellitus with hyperglycemia; R79.89 Other specified abnormal findings of blood chemistry; E88.09 Other disorders of plasma-protein metabolism, not elsewhere classified; E83.42 Hypomagnesemia; F41.9 Anxiety disorder, unspecified; F32.A Depression, unspecified; M62.50 Muscle wasting and atrophy, not elsewhere classified, unspecified site; K05.6 Periodontal disease, unspecified; A59.9 Trichomoniasis, unspecified; Z88.8 Allergy status to other drugs, medicaments and biological substances; Z79.4 Long term (current) use of insulin; Z90.49 Acquired absence of other specified parts of digestive tract; Z98.51 Tubal ligation status; Z98.890 Other specified postprocedural states
CPT/HCPCS: 36415; 70491; 71045; 80053; 80202; 80305-QW; 81001; 82550; 82947; 83036; 83605; 83735; 85025; 85610; 85651; 86140; 87040; 87086; 96365; 96366; 96375; 99284; 99285-25; A9270-GY; J0295; J0360; J0696; J1100; J1171; J1200; J1630; J1650; J1815-GY; J1885; J2060; J2405; J2470; J2765; J3370; J3371; J3475; J3490; J7030; J7050; J7060; J7120; Q9967